=== PATIENT | female | born 1950 | race Caucasian/White ===

== ENCOUNTER 2019-07-15 13:09 | Inpatient (IN) | payer MEDICARE ==
[~2019-07-15] VITALS: Ht 160 cm; Wt 101.2 kg
[~2019-07-15 13:09] MED LIST: ACET1TAB PO; ACET500T33 PO; AMIT10TA PO; APIX5TAB PO; ASCO500T4 PO; ASPI325T8 PO; ATOR40TA PO; CALC667T4 PO; CHLO4TAB20 PO; CIPR500T94 PO; CRESTOR10 MG PO; DEXL60CA2 PO; DIAZ5TAB4 PO; DICL75TA PO; DICY10CA3 PO; DOXY100T PO; ESOM40CA25 PO; FLUC100T7 PO; FOLI0.8T3 PO; FURO-68 PO; GABA-585 PO; GABA300C18 PO; INSU100I13 SQ; INSU100I15 SQ; INSU100I49 SQ; LEVO500T59 PO; LEXAPRO5 MG PO; METO5TAB PO; MONT10TA49 PO; NITR0.4T22 SL; NYST15PO9 TP; OLME20TA17 PO; PANT40TA77 PO; PRED-220 PO; RANI150C PO; TRIA16.52 NS; [UNRECOGNIZED DRUG - CODE] OP
[2019-07-15 13:41] VITALS: BP 136/71
--- NOTE | 2019-07-15 13:56 | HP ---
ADMIT DATE: 07/15/2019 ADMISSION HISTORY AND PHYSICAL CHIEF COMPLAINT AND HISTORY OF PRESENT ILLNESS: This 68-year-old white female well known to me in followup in the office. The patient was seen on the day of admission with once again abdominal pain. She had been at [facility] where she was discharged on the of this month for pancreatitis of uncertain etiology. It has been a week or so in [place] getting out in the last several days with ongoing epigastric pain with initially elevated lipase, mildly delayed gastric emptying time and was actually doing fairly well at discharge on 5 mg of Reglan a.c. and at bedtime and Protonix as well as some dicyclomine. She was back to the point of eating and drinking very little, was writhing around in the chair during the exam, it was elected to readmit her for further evaluation by GI, including EGD, etc. PAST MEDICAL HISTORY: Remarkable for cardiomyopathy with ejection fraction of 20%, which was nonischemic; longstanding history of diabetes; end-stage renal disease, on dialysis; hypertension; morbid obesity; pulmonary embolism in the past; vitamin D deficiency; history of decubitus ulcers and sacral area; atrial fibrillation; status post amputation of the right third toe; history of cardiac arrest with PEA and resuscitation. Also, history of mild dementia. MEDICATIONS: Brought with the patient, listed on the computer and have been addressed. ALLERGIES: SHE IS ALLERGIC TO PENICILLIN, MORPHINE, DARVOCET, SULFA, DILAUDID. SOCIAL HISTORY: She is a nonsmoker, nondrinker, does not abuse drugs. Lives at home with her , has also had some dementia, may have a daughter who helps on a daily basis. FAMILY HISTORY: Noncontributory. REVIEW OF SYSTEMS: Remarkable for epigastric severe pain, not radiating to the back, not made worse with eating, drinking or anything that she knows of. Also, not made better with anything including bowel movements, etc. She has had no nausea or vomiting with this. PHYSICAL EXAMINATION: GENERAL: She is a well-developed, well-nourished white female, appears ill. VITAL SIGNS: Stable. She is afebrile. HEAD, EYES, EARS, NOSE AND THROAT: Unremarkable. NECK: Supple, without lymphadenopathy or thyromegaly. CHEST: Clear to auscultation and percussion. HEART: Regular rate and rhythm without S3, S4 or murmur. ABDOMEN: Reveals epigastric tenderness, although it is not quite to the severity. It was during the last time of admission. EXTREMITIES: Without cyanosis, clubbing, edema. NEUROLOGIC: She is intact. IMPRESSION: Abdominal pain, incapacitating with multiple other problems listed above. PLAN: The patient has been admitted. GI will be asked to see her once again. Full lab panel will be done and the patient will be monitored, managed and treated appropriately. HUGH CARTER MD DR: ANIBAL/anyi JOB#: [id number] / [id number]
--- NOTE | 2019-07-15 15:31 | NUR ---
admitted to room 432. states she went to Dr. Cardona and he sent her here. she is unsure of the reason. poor historian. states that her meds are uncharged from last admission 2-3 wks ago. last bm this today. saline lock started in left inner forearm #22 on 2nd attempt. av shunt in the right ac area.. complains of right leg pain
[2019-07-15 15:55] VITALS: BP 132/71
[2019-07-15] MEDS ORDERED: DEXTROSE 50% 25 GM / 50ML DISP.SYRIN. IV PRN (16:15)
[2019-07-15] MEDS ORDERED: NITROGLYCERIN SUBLINGUAL 0.4 MG BOTTLE OF 25. SL PRN (16:15)
[2019-07-15] MEDS ORDERED: DICYCLOMINE HCL 10 MG CAPSULE PO PRN (16:15)
[2019-07-15] MEDS: METOCLOPRAMIDE 5 MG TABLET. PO SCH ×2 (16:53→21:33)
[2019-07-15] MEDS: CALCIUM ACETATE 667 MG CAPSULE PO SCH (16:53)
[2019-07-15] MEDS: fentaNYL PF VIAL 100 MCG/2 ML VIAL IVP PRN ×2 (16:54→21:47)
[2019-07-15] MEDS: IV NORMAL SALINE 1000ML BAG 1,000 ML IV SCH (16:54)
[2019-07-15] MEDS: INSULIN LISPRO 300 UNITS/3 ML VIAL. SQ SCH ×2 (17:02→17:03)
[2019-07-15 17:54] LABS: HEMATOCRIT 30.4 % (36.0-47.0); HEMOGLOBIN 10.1 g/dL (12.0-15.5); WHITE BLOOD COUNT 4.2 x10^3/uL (4.0-11.0)
[2019-07-15 18:05] LABS: AMYLASE 21 U/L (25-115); LIPASE 130 U/L (73-393)
[2019-07-15 18:10] LABS: ALBUMIN 2.9 g/dL (3.4-5.0); ALBUMIN/GLOBULIN RATIO 0.7 (1.0-1.7); CREATININE 7.1 mg/dL (0.6-1.0); GFR 5.8; POTASSIUM 5.5 mmol/L (3.5-5.1); TOTAL BILIRUBIN 0.8 mg/dL (0.2-1.0); TOTAL PROTEIN 7.2 g/dL (6.4-8.2)
[2019-07-15 19:00] VITALS: BP 110/67
[2019-07-15] MEDS: APIXABAN 5 MG TABLET. PO SCH (21:32)
[2019-07-15] MEDS: GABAPENTIN 300 MG CAPSULE. PO SCH (21:33)
[2019-07-15] MEDS: NYSTATIN TOPICAL POWDER 15GM BOTTLE. TP SCH (22:41)
[2019-07-15 23:00] VITALS: BP 102/75
[2019-07-16 02:52] VITALS: BP 106/64
[2019-07-16] MEDS: fentaNYL PF VIAL 100 MCG/2 ML VIAL IVP PRN ×2 (03:21→16:04)
[2019-07-16] MEDS ORDERED: IV RINGERS,LACTATED 1000ML 1,000 ML IV SCH (07:12)
[2019-07-16] MEDS ORDERED: fentaNYL PF VIAL 100 MCG/2 ML VIAL IV PRN ×2 (07:15)
[2019-07-16] MEDS ORDERED: ONDANSETRON PF 4 MG/2 ML VIAL. IV PRN (07:15)
[2019-07-16] MEDS ORDERED: LIDOCAINE 1% PF 2 ML VIAL. ID PRN (07:15)
[2019-07-16] MEDS: METOCLOPRAMIDE 5 MG TABLET. PO SCH ×4 (07:30→21:16)
[2019-07-16] MEDS: PANTOPRAZOLE 40 MG TABLET.DR. PO SCH (07:30)
[2019-07-16] MEDS: CALCIUM ACETATE 667 MG CAPSULE PO SCH ×3 (07:51→15:58)
[2019-07-16 07:59] VITALS: BP 118/68
[2019-07-16] MEDS: INSULIN LISPRO 300 UNITS/3 ML VIAL. SQ SCH ×8 (08:00→16:52)
--- NOTE | 2019-07-16 08:11 | PDOC ---
GENERAL General: vss and afebrile sugars variable. less abdominal tenderness and complaints of same this am. I did check with pharmacy yesterday and dc meds from prior hospitalization were filled on dc. chest clear, heart regular, amylase and lipase are normal on admit. await egd and GI thoughts. VITAL SIGNS/I&O Vital Signs/I&O: Vital Signs Date Time Temp Pulse Resp B/P (MAP) Pulse Ox O2 Delivery O2 Flow Rate FiO2 07/16/19 07:59 98.0 101 18 118/68 (85) 95 Room Air 98.0 I & O 07/15/19 07/15/19 07/16/19 15:00 23:00 07:00 Intake Total 1410 ml Balance 1410 ml ALLERGIES Allergies: Allergies Coded Allergies Type Severity Reaction Last Updated Verified Penicillins Allergy Intermediate Rash 04/19/17 Yes clarithromycin Allergy Intermediate Rash 04/19/17 Yes levofloxacin Allergy Intermediate RASH TO TONGUE 04/19/17 Yes sulfamethoxazole Allergy Intermediate Rash 04/19/17 Yes trimethoprim Allergy Intermediate Rash 04/19/17 Yes vancomycin Allergy Intermediate Itching, NERVOUSNESS, FLUSHING 04/19/17 Yes hydromorphone Adverse Reaction Severe Shortness of Air 04/19/17 Yes Sulfa (Sulfonamide Antibiotics) Adverse Reaction Intermediate Anxiety, insomnia 04/19/17 Yes morphine Adverse Reaction Intermediate hallucinations 04/19/17 Yes MEDS Medications: Current Medications Medications (Trade) Dose Ordered Sig/Samara Route PRN Reason Start Time Stop Time Status Last Admin Dose Admin Apixaban (Eliquis) 5 mg BID PO 07/15/19 21:00 07/15/19 21:32 Gabapentin (Neurontin) 300 mg TID PO 07/15/19 21:00 07/15/19 21:33 Metoclopramide HCl (Reglan) 5 mg TIDACHC PO 07/15/19 16:30 07/15/19 21:33 Nystatin (Nystop) 15 anette BID TP 07/15/19 21:00 07/15/19 22:41 Calcium Acetate (Phoslo) 667 mg TIDWMEALS PO 07/15/19 17:00 07/15/19 16:53 Insulin Human Lispro (HumaLOG) 8 units TIDWMEALS SQ 07/15/19 17:00 07/15/19 17:03 Sodium Chloride 1,000 ml @ 50 mls/hr Q20H IV 07/15/19 16:15 07/15/19 16:54 Fentanyl Citrate (Fentanyl 2ml Vial) 25 mcg PRN Q2HR PRN IVP PAIN 07/15/19 16:15 07/16/19 03:21 Insulin Human Lispro (HumaLOG) 0-5 UNITS TIDWMEALS SQ 07/15/19 17:00 07/15/19 17:02 LAB Lab: Laboratory Tests Test 07/15/19 14:52 07/15/19 16:36 07/15/19 17:20 07/15/19 20:56 Glucose (Fingerstick) 247 mg/dL (70-99) H 241 mg/dL (70-99) H 118 mg/dL (70-99) H White Blood Count 4.2 x10^3/uL (4.0-11.0) Hemoglobin 10.1 g/dL (12.0-15.5) L Hematocrit 30.4 % (36.0-47.0) L Platelet Count 199 x10^3/uL (140-400) Sodium Level 133 mmol/L (136-145) L Potassium Level 5.5 mmol/L (3.5-5.1) H Chloride Level 95 mmol/L (98-107) L Carbon Dioxide Level 26 mmol/L (21-32) Anion Gap 12 (6-14) Blood Urea Nitrogen 65 mg/dL (7-20) H Creatinine 7.1 mg/dL (0.6-1.0) H Estimated GFR (Cockcroft-Gault) 5.8 BUN/Creatinine Ratio 9 (6-20) Glucose Level 236 mg/dL (70-99) H Calcium Level 9.0 mg/dL (8.5-10.1) Total Bilirubin 0.8 mg/dL (0.2-1.0) Aspartate Amino Transferase (AST) 27 U/L (15-37) Alanine Aminotransferase (ALT) 40 U/L (14-59) Alkaline Phosphatase 244 U/L (46-116) H Total Protein 7.2 g/dL (6.4-8.2) Albumin 2.9 g/dL (3.4-5.0) L Albumin/Globulin Ratio 0.7 (1.0-1.7) L Amylase Level 21 U/L (25-115) L Lipase 130 U/L (73-393) Test 07/16/19 07:53 Glucose (Fingerstick) 145 mg/dL (70-99) H Laboratory Tests 07/15/19 17:20 Laboratory Tests 07/15/19 17:20 HUGH CARTER MD Jul 16, 2019 08:11
[2019-07-16] MEDS: GABAPENTIN 300 MG CAPSULE. PO SCH ×3 (08:39→21:16)
[2019-07-16] MEDS: ATORVASTATIN CALCIUM 40 MG TABLET. PO SCH (08:39)
[2019-07-16] MEDS: APIXABAN 5 MG TABLET. PO SCH ×2 (08:39→21:16)
[2019-07-16] MEDS: FOLIC/VIT B COMP W-C (RENAL) TABLET. PO SCH (08:40)
[2019-07-16] MEDS: MONTELUKAST SODIUM 10 MG TABLET. PO SCH (08:40)
[2019-07-16] MEDS: NYSTATIN TOPICAL POWDER 15GM BOTTLE. TP SCH ×2 (08:55→21:17)
--- NOTE | 2019-07-16 09:34 | PDOC2 ---
CONSULT Date of Consult Date of Consult DATE: 07/16/19 TIME: 09:26 Source Source: Chart review, Patient History of Present Illness Reason for Visit: Pt is a 68-year-old female readmitted with c/0 abdominal pain. She had been at [facility] where she was discharged on the 9 of this month for pancreatitis of uncertain etiology. Hospitalized at [facility] and [facility] earlier this week C/O ongoing epigastric pain with elevated lipase, mildly delayed gastric emptying time She has OP Dialyses at [facility] under the care of Dr. Curtis on TTS Past Medical History Past Medical History Has cardiomyopathy with ejection fraction of 20%, which was nonischemic; longstanding history of diabetes; end-stage renal disease, on dialysis; hypertension; morbid obesity; pulmonary embolism in the past; vitamin D deficiency; history of decubitus ulcers and sacral area; atrial fibrillation; status post amputation of the right third toe; history of cardiac arrest with PEA and resuscitation. Also, history of mild dementia. Cardiovascular: CHF, HTN GI: Constipation Heme/Onc: Anemia NOS Renal/: Chronic renal failure Endocrine: Hyperparathyroidism Family History Family History: Hypertension Social History ALCOHOL: none Drugs: None Lives: with Family Current Medications Current Medications Current Medications Apixaban (Eliquis) 5 mg BID PO Last administered on 07/15/19at 21:32; Start 07/15/19 at 21:00 Atorvastatin Calcium (Lipitor) 40 mg DAILY PO ; Start 07/16/19 at 09:00 Dicyclomine HCl (Bentyl) 10 mg PRN TID PRN PO abd pain; Start 07/15/19 at 16:15 Vitamin B Complex/ Vitamin C (Swathi-Karmen) 1 tab DAILY PO ; Start 07/16/19 at 09:00 Gabapentin (Neurontin) 300 mg TID PO Last administered on 07/15/19at 21:33; Start 07/15/19 at 21:00 Metoclopramide HCl (Reglan) 5 mg TIDACHC PO Last administered on 07/15/19at 21:33; Start 07/15/19 at 16:30 Montelukast Sodium (Singulair) 10 mg DAILY PO ; Start 07/16/19 at 09:00 Nitroglycerin (Nitrostat) 0.4 mg PRN Q5MIN PRN SL CHEST PAIN; Start 07/15/19 at 16:15 Nystatin (Nystop) 15 anette BID TP Last administered on 07/15/19at 22:41; Start 07/15/19 at 21:00 Pantoprazole Sodium (Protonix) 40 mg DAILYAC PO ; Start 07/16/19 at 07:30 Calcium Acetate (Phoslo) 667 mg TIDWMEALS PO Last administered on 07/15/19at 16:53; Start 07/15/19 at 17:00 Insulin Human Lispro (HumaLOG) 8 units TIDWMEALS SQ Last administered on 07/15/19at 17:03; Start 07/15/19 at 17:00 Sodium Chloride 1,000 ml @ 50 mls/hr Q20H IV Last administered on 07/15/19at 16:54; Start 07/15/19 at 16:15 Fentanyl Citrate (Fentanyl 2ml Vial) 25 mcg PRN Q2HR PRN IVP PAIN Last administered on 07/16/19at 03:21; Start 07/15/19 at 16:15 Insulin Human Lispro (HumaLOG) 0-5 UNITS TIDWMEALS SQ Last administered on 07/15/19at 17:02; Start 07/15/19 at 17:00 Dextrose (Dextrose 50%-Water Syringe) 12.5 gm PRN Q15MIN PRN IV SEE COMMENTS; Start 07/15/19 at 16:15 Ondansetron HCl (Zofran) 4 mg PRN Q6HRS PRN IV NAUSEA/VOMITING; Start 07/16/19 at 07:15; Stop 07/17/19 at 07:14 Fentanyl Citrate (Fentanyl 2ml Vial) 25 mcg PRN Q5MIN PRN IV MILD PAIN 1-3; Start 07/16/19 at 07:15; Stop 07/17/19 at 07:14 Fentanyl Citrate (Fentanyl 2ml Vial) 50 mcg PRN Q5MIN PRN IV MODERATE TO SEVERE PAIN; Start 07/16/19 at 07:15; Stop 07/17/19 at 07:14 Ringer's Solution 1,000 ml @ 30 mls/hr Q24H IV ; Start 07/16/19 at 07:12; Stop 07/16/19 at 19:11 Lidocaine HCl (Xylocaine-Mpf 1% 2ml Vial) 2 ml PRN 1X PRN ID PRIOR TO IV START; Start 07/16/19 at 07:15; Stop 07/17/19 at 07:14 Active Scripts Active Metoclopramide Hcl 5 Mg Tablet 5 Mg PO TIDACHC 30 Days Pantoprazole Sodium (Pantoprazole Sodium) 40 Mg Tablet.dr 40 Mg PO DAILYAC 30 Days Dicyclomine Hcl 10 Mg Capsule 10 Mg PO PRN TID PRN 30 Days Reported Nystatin 15 Gm Powder 15 Gm TP BID Nephro-Karmen Tablet (Folic Acid/Vitamin B Comp W-C) 0.8 Mg Tablet 1 Tab PO DAILY Calcium Acetate 667 Mg Tablet 667 Mg PO TIDWMEALS Lipitor (Atorvastatin Calcium) 40 Mg Tablet 40 Mg PO DAILY Eliquis (Apixaban) 5 Mg Tablet 5 Mg PO BID Novolin R Flexpen (Insulin Regular, Human) 100 Unit/1 Ml Insuln.pen 8 Unit SQ TIDWMEALS NITROGLYCERIN SubLingual (Nitroglycerin) 0.4 Mg Tab.subl 0.4 Mg SL PRN Q5MIN PRN Montelukast Sodium Tablet (Montelukast Sodium) 10 Mg Tablet 10 Mg PO DAILY Gabapentin 300 Mg Capsule 300 Mg PO TID Allergies Allergies: Coded Allergies: Penicillins (Verified Allergy, Intermediate, Rash, 04/19/17) clarithromycin (Verified Allergy, Intermediate, Rash, 04/19/17) levofloxacin (Verified Allergy, Intermediate, RASH TO TONGUE, 04/19/17) sulfamethoxazole (Verified Allergy, Intermediate, Rash, 04/19/17) trimethoprim (Verified Allergy, Intermediate, Rash, 04/19/17) vancomycin (Verified Allergy, Intermediate, Itching, NERVOUSNESS, FLUSHING, 04/19/17) hydromorphone (Verified Adverse Reaction, Severe, Shortness of Air, 04/19/17) Patient had respiratory code post administration Sulfa (Sulfonamide Antibiotics) (Verified Adverse Reaction, Intermediate, Anxiety, insomnia, 04/19/17) morphine (Verified Adverse Reaction, Intermediate, hallucinations, 04/19/17) ROS Review of System Per HPI Physical Exam Physical Exam GENERAL: NAD HEEN: Unremarkable. NECK: Supple, CHEST: Clear to auscultation HEART: Regular rate and rhythm ABDOMEN: epigastric tenderness EXTREMITIES: Without cyanosis, clubbing, edema. NEUROLOGIC:grossly normal - No easley DERM- No Rash Vital Signs Vital Signs Date Time Temp Pulse Resp B/P (MAP) Pulse Ox O2 Delivery O2 Flow Rate FiO2 07/16/19 08:30 Room Air 07/16/19 07:59 98.0 101 18 118/68 (85) 95 98.0 Assessment & Plan ESRD On HD at [facility] Under the care of Dr. Curtis Access- Rt arm Transposed BC AVF , Dialyzed yesterday No indication for HD today HyperKalemia- Mild , Monitor, Low K diet Epigastric pain - recurrent Mildly delayed gastric emptying , recently started on Reglan per primary EGD this am per GI H/o pancreatitis - cause unclear; s/p anayeli, recent CT unrevealing, CA19-9 and IgG4 WNL, previously suggested outpt MRCP, ?recent workup at [facility] H/o pancreatitis - cause unclear; s/p anayeli, HypoNatremia- normal after correcting for Glucose DM- , Pcp Labs Labs Laboratory Tests Test 07/15/19 14:52 07/15/19 16:36 07/15/19 17:20 07/15/19 20:56 Glucose (Fingerstick) 247 mg/dL (70-99) 241 mg/dL (70-99) 118 mg/dL (70-99) White Blood Count 4.2 x10^3/uL (4.0-11.0) Hemoglobin 10.1 g/dL (12.0-15.5) Hematocrit 30.4 % (36.0-47.0) Platelet Count 199 x10^3/uL (140-400) Sodium Level 133 mmol/L (136-145) Potassium Level 5.5 mmol/L (3.5-5.1) Chloride Level 95 mmol/L (98-107) Carbon Dioxide Level 26 mmol/L (21-32) Anion Gap 12 (6-14) Blood Urea Nitrogen 65 mg/dL (7-20) Creatinine 7.1 mg/dL (0.6-1.0) Estimated GFR (Cockcroft-Gault) 5.8 BUN/Creatinine Ratio 9 (6-20) Glucose Level 236 mg/dL (70-99) Calcium Level 9.0 mg/dL (8.5-10.1) Total Bilirubin 0.8 mg/dL (0.2-1.0) Aspartate Amino Transf (AST/SGOT) 27 U/L (15-37) Alanine Aminotransferase (ALT/SGPT) 40 U/L (14-59) Alkaline Phosphatase 244 U/L (46-116) Total Protein 7.2 g/dL (6.4-8.2) Albumin 2.9 g/dL (3.4-5.0) Albumin/Globulin Ratio 0.7 (1.0-1.7) Amylase Level 21 U/L (25-115) Lipase 130 U/L (73-393) Test 07/16/19 07:53 Glucose (Fingerstick) 145 mg/dL (70-99) Laboratory Tests Test 07/15/19 14:52 07/15/19 16:36 07/15/19 17:20 07/15/19 20:56 Glucose (Fingerstick) 247 mg/dL (70-99) 241 mg/dL (70-99) 118 mg/dL (70-99) White Blood Count 4.2 x10^3/uL (4.0-11.0) Hemoglobin 10.1 g/dL (12.0-15.5) Hematocrit 30.4 % (36.0-47.0) Platelet Count 199 x10^3/uL (140-400) Sodium Level 133 mmol/L (136-145) Potassium Level 5.5 mmol/L (3.5-5.1) Chloride Level 95 mmol/L (98-107) Carbon Dioxide Level 26 mmol/L (21-32) Anion Gap 12 (6-14) Blood Urea Nitrogen 65 mg/dL (7-20) Creatinine 7.1 mg/dL (0.6-1.0) Estimated GFR (Cockcroft-Gault) 5.8 BUN/Creatinine Ratio 9 (6-20) Glucose Level 236 mg/dL (70-99) Calcium Level 9.0 mg/dL (8.5-10.1) Total Bilirubin 0.8 mg/dL (0.2-1.0) Aspartate Amino Transf (AST/SGOT) 27 U/L (15-37) Alanine Aminotransferase (ALT/SGPT) 40 U/L (14-59) Alkaline Phosphatase 244 U/L (46-116) Total Protein 7.2 g/dL (6.4-8.2) Albumin 2.9 g/dL (3.4-5.0) Albumin/Globulin Ratio 0.7 (1.0-1.7) Amylase Level 21 U/L (25-115) Lipase 130 U/L (73-393) Test 07/16/19 07:53 Glucose (Fingerstick) 145 mg/dL (70-99) Review All relevant outside records, renal labs, imaging studies, telemetry/EKG's were reviewed. MELVIN NEWBERRY MD Jul 16, 2019 09:34
--- NOTE | 2019-07-16 09:44 | PDOC ---
Subjective: Subjective: Please see GI consults from 07/05/19. Directly admitted by PCP again yesterday for recurrent abd pain. She says began again yesterday w/o precipitating events. Epigastric, aching. Doesn't know what brought it on or what makes it worse or better. Indicates compliance w/ PPI and prokinetic. Denies n/v, diarrhea, constipation, and bleeding. Objective: Objective: Requested records x 2 last admission - not received. She says she does not remember this recent admission/workup. Vital Signs: Vital Signs Date Time Temp Pulse Resp B/P (MAP) Pulse Ox O2 Delivery O2 Flow Rate FiO2 07/16/19 08:30 Room Air 07/16/19 07:59 98.0 101 18 118/68 (85) 95 98.0 Labs: Laboratory Tests Test 07/15/19 14:52 07/15/19 16:36 07/15/19 20:56 07/16/19 07:53 Glucose (Fingerstick) 247 mg/dL (70-99) 241 mg/dL (70-99) 118 mg/dL (70-99) 145 mg/dL (70-99) Imaging: CT A/P 07/04 IMPRESSION: No acute process identified within the abdomen or pelvis. GES 07/11 Impression: Slight delay of gastric emptying at 2 hours and a slightly prolonged T1/2. Gastric emptying is overall otherwise within normal limits. PE: GEN: NAD, was asleep - bag of sun chips on bedside table LUNGS: diminished anteriorly HEART: borderline tachycardic ABD: epigastric discomfort, large, soft, quiet BS NEURO/PSYCH: quite forgetful A/P: Epigastric pain - recurrent Occasional heartburn - resumed PPI last admission Mildly delayed gastric emptying - recently started on Reglan per primary H/o pancreatitis - cause unclear; s/p anayeli, recent CT unrevealing, CA19-9 and IgG4 WNL, previously suggested outpt MRCP, ?recent workup at [facility], ESRD on HD, DM -- Challenging history. Plans for EGD this morning w/ Dr. Sue - she is agreeable. Hemodynamically unstable?: No Is patient in severe pain?: No Is NPO status required?: Yes (for EGD) ASHUTOSH SHAIKH Jul 16, 2019 09:44
[2019-07-16] MEDS ORDERED: IV NORMAL SALINE 1000ML BAG 1,000 ML IV SCH (10:45)
[2019-07-16] MEDS: ANTI-COAG MONITOR BY PHARMACY. MC PRN (10:50)
[2019-07-16] MEDS ORDERED: LIDOCAINE 2% PF 5 ML VIAL. ONE (10:54)
[2019-07-16] MEDS ORDERED: PROPOFOL 40 ML IV ONE (10:54)
[2019-07-16] MEDS ORDERED: ePHEDrine PF IN SALINE 50 MG/10 ML SYRINGE. IV ONE (10:54)
--- NOTE | 2019-07-16 11:35 | PDOC4 ---
Operative Note Operative Note EGD Meds propofol per anesthesia Pre-op dx abd pain, n/v Post-op dx non-erosive gastritis Plan resume diet sb series if pain recurs to further assess ABEL BERGERON MD Jul 16, 2019 11:35
--- NOTE | 2019-07-16 13:52 | NUR ---
SS following for discharge planning. SS reviewed pt chart and discussed with pt RN. Pt is from home with spouse and is currently on room air. Pt has outpatient dialysis at [facility], ; fax [phone], Friday, , and Friday. [facility] requiring COVID19 testing. Pt's RN notified. Pt had EGD today, 07/16/2019. SS will continue to follow for discharge planning.
[2019-07-16] MEDS: IV NORMAL SALINE 1000ML BAG 1,000 ML IV SCH (14:00)
[2019-07-16 15:00] VITALS: BP 111/68
--- NOTE | 2019-07-16 18:31 | NUR ---
Pt had previous skin tear noted to R elbow that reopened. Pt stated she "didn't know how it reopened." This RN applied gauze and medipore tape.
[2019-07-16 19:44] VITALS: BP 111/73
[2019-07-16 23:12] VITALS: BP 115/67
[2019-07-17] MEDS: fentaNYL PF VIAL 100 MCG/2 ML VIAL IVP PRN ×4 (02:48→17:48)
[2019-07-17 03:11] VITALS: BP 102/42
[2019-07-17 06:45] LABS: CALCIUM 8.1 mg/dL (8.5-10.1); CREATININE 7.7 mg/dL (0.6-1.0); GFR 5.2; POTASSIUM 5.5 mmol/L (3.5-5.1)
[2019-07-17 07:00] VITALS: BP 96/52
[2019-07-17] MEDS: METOCLOPRAMIDE 5 MG TABLET. PO SCH ×4 (07:30→21:19)
[2019-07-17] MEDS: INSULIN LISPRO 300 UNITS/3 ML VIAL. SQ SCH ×6 (08:00→17:55)
[2019-07-17] MEDS: CALCIUM ACETATE 667 MG CAPSULE PO SCH ×3 (08:00→15:15)
[2019-07-17] MEDS ORDERED: IV NORMAL SALINE 1000ML BAG 1,000 ML IV PRN (08:26)
[2019-07-17] MEDS ORDERED: DIALYSIS PATIENT. MC PRN (08:30)
[2019-07-17] MEDS ORDERED: MIDODRINE 5 MG TABLET PO PRN (08:30)
[2019-07-17] MEDS ORDERED: ALBUMIN HUMAN 25% 200 ML IV PRN (08:30)
[2019-07-17] MEDS: GABAPENTIN 300 MG CAPSULE. PO SCH ×3 (09:00→21:18)
[2019-07-17] MEDS: APIXABAN 5 MG TABLET. PO SCH ×2 (09:00→21:19)
--- NOTE | 2019-07-17 09:07 | PDOC ---
GENERAL General: vss and afebrile awake and alert and just finished 100% of breakfast. no significant complaint of abdominal pain this am. non erosive gastritis on egd yesterday. sugars fair. minimal epigastric tenderness, chest clear, heart regular. continue present with dc am if continues as is this am. concerned that meds not being taken as prescribed at home with dementia of patient and . have discussed with daughter multiple times strategies to address and will again. VITAL SIGNS/I&O Vital Signs/I&O: Vital Signs Date Time Temp Pulse Resp B/P (MAP) Pulse Ox O2 Delivery O2 Flow Rate FiO2 07/17/19 07:00 97.6 112 16 96/52 (67) 98 Room Air 97.6 07/16/19 11:31 4 I & O 07/16/19 07/16/19 07/17/19 15:00 23:00 07:00 Intake Total 1000 ml 340 ml 1260 ml Output Total 1 ml Balance 1000 ml 339 ml 1260 ml ALLERGIES Allergies: Allergies Coded Allergies Type Severity Reaction Last Updated Verified Penicillins Allergy Intermediate Rash 04/19/17 Yes clarithromycin Allergy Intermediate Rash 04/19/17 Yes levofloxacin Allergy Intermediate RASH TO TONGUE 04/19/17 Yes sulfamethoxazole Allergy Intermediate Rash 04/19/17 Yes trimethoprim Allergy Intermediate Rash 04/19/17 Yes vancomycin Allergy Intermediate Itching, NERVOUSNESS, FLUSHING 04/19/17 Yes hydromorphone Adverse Reaction Severe Shortness of Air 04/19/17 Yes Sulfa (Sulfonamide Antibiotics) Adverse Reaction Intermediate Anxiety, insomnia 04/19/17 Yes morphine Adverse Reaction Intermediate hallucinations 04/19/17 Yes MEDS Medications: Current Medications Medications (Trade) Dose Ordered Sig/Samara Route PRN Reason Start Time Stop Time Status Last Admin Dose Admin Info (Anti-Coagulation Monitoring By Pharmacy) 1 each PRN DAILY PRN MC SEE COMMENTS 07/16/19 10:30 07/16/19 10:50 LAB Lab: Laboratory Tests Test 07/16/19 12:57 07/16/19 16:23 07/16/19 20:51 07/17/19 01:30 Glucose (Fingerstick) 157 mg/dL (70-99) H 245 mg/dL (70-99) H 113 mg/dL (70-99) H Sodium Level 138 mmol/L (136-145) Potassium Level 5.5 mmol/L (3.5-5.1) H Chloride Level 99 mmol/L (98-107) Carbon Dioxide Level 25 mmol/L (21-32) Anion Gap 14 (6-14) Blood Urea Nitrogen 70 mg/dL (7-20) H Creatinine 7.7 mg/dL (0.6-1.0) H Estimated GFR (Cockcroft-Gault) 5.2 Glucose Level 62 mg/dL (70-99) L Calcium Level 8.1 mg/dL (8.5-10.1) L Test 07/17/19 07:32 Glucose (Fingerstick) 86 mg/dL (70-99) Laboratory Tests 07/17/19 01:30 Hemodynamically unstable?: No Is patient in severe pain?: No Is NPO status required?: Yes (for EGD) HUGH CARTER MD Jul 17, 2019 09:07
[2019-07-17] MEDS ORDERED: LIDOCAINE 1% PF 2 ML VIAL. ONE ×2 (09:43→10:00)
--- NOTE | 2019-07-17 09:45 | NUR ---
Pt transported to dialysis by bed. Pt states that her 2 year olds preschool teacher (s) that her brought in never were brought up to her and are missing. Gianna from dialysis checked down at the front entrance. No employee present at the time. Will check with security.
--- NOTE | 2019-07-17 12:53 | PDOC ---
Dialysis Progress Note Dialysis Note Dialysis Note Seen on Hemodialysis, tolerating treatment Okay so far Vitals on Hemodialysis: 120/71 108 afeb General Appearance: Awake: Alert Oriented x 2-3 Neck: No JVD or JVP Chest: CTA Floyd Heart: S1 S2 Abdomen - Soft NTND Extremities - No Edema ESRD: Dialysis as below F 180 NR 4.0 Hrs 2 K 2.5 Ca 140 Na 35 HC03 Qb 350 + Qd 500+ Heparin 0 Units Uf 2-3 Kgs or to dry weight as tolerated May give 25-50 gms of 25% Albumin if needed to maintain Hemodynamic stability Treatment plan reviewed and discussed with drum reel cutter Vitals Vital Signs Vital Signs Date Time Temp Pulse Resp B/P (MAP) Pulse Ox O2 Delivery O2 Flow Rate FiO2 07/17/19 11:07 20 98 Room Air 07/17/19 07:00 97.6 112 96/52 (67) 97.6 07/16/19 11:31 4 Labs Last Labs Laboratory Tests Test 07/15/19 14:52 07/15/19 16:36 07/15/19 17:20 07/15/19 20:56 Glucose (Fingerstick) 247 mg/dL (70-99) 241 mg/dL (70-99) 118 mg/dL (70-99) White Blood Count 4.2 x10^3/uL (4.0-11.0) Hemoglobin 10.1 g/dL (12.0-15.5) Hematocrit 30.4 % (36.0-47.0) Platelet Count 199 x10^3/uL (140-400) Sodium Level 133 mmol/L (136-145) Potassium Level 5.5 mmol/L (3.5-5.1) Chloride Level 95 mmol/L (98-107) Carbon Dioxide Level 26 mmol/L (21-32) Anion Gap 12 (6-14) Blood Urea Nitrogen 65 mg/dL (7-20) Creatinine 7.1 mg/dL (0.6-1.0) Estimated GFR (Cockcroft-Gault) 5.8 BUN/Creatinine Ratio 9 (6-20) Glucose Level 236 mg/dL (70-99) Calcium Level 9.0 mg/dL (8.5-10.1) Total Bilirubin 0.8 mg/dL (0.2-1.0) Aspartate Amino Transf (AST/SGOT) 27 U/L (15-37) Alanine Aminotransferase (ALT/SGPT) 40 U/L (14-59) Alkaline Phosphatase 244 U/L (46-116) Total Protein 7.2 g/dL (6.4-8.2) Albumin 2.9 g/dL (3.4-5.0) Albumin/Globulin Ratio 0.7 (1.0-1.7) Amylase Level 21 U/L (25-115) Lipase 130 U/L (73-393) Test 07/16/19 07:53 07/16/19 12:57 07/16/19 16:23 07/16/19 20:51 Glucose (Fingerstick) 145 mg/dL (70-99) 157 mg/dL (70-99) 245 mg/dL (70-99) 113 mg/dL (70-99) Test 07/17/19 01:30 07/17/19 07:32 Sodium Level 138 mmol/L (136-145) Potassium Level 5.5 mmol/L (3.5-5.1) Chloride Level 99 mmol/L (98-107) Carbon Dioxide Level 25 mmol/L (21-32) Anion Gap 14 (6-14) Blood Urea Nitrogen 70 mg/dL (7-20) Creatinine 7.7 mg/dL (0.6-1.0) Estimated GFR (Cockcroft-Gault) 5.2 Glucose Level 62 mg/dL (70-99) Calcium Level 8.1 mg/dL (8.5-10.1) Glucose (Fingerstick) 86 mg/dL (70-99) Laboratory Tests Test 07/16/19 12:57 07/16/19 16:23 07/16/19 20:51 07/17/19 01:30 Glucose (Fingerstick) 157 mg/dL (70-99) 245 mg/dL (70-99) 113 mg/dL (70-99) Sodium Level 138 mmol/L (136-145) Potassium Level 5.5 mmol/L (3.5-5.1) Chloride Level 99 mmol/L (98-107) Carbon Dioxide Level 25 mmol/L (21-32) Anion Gap 14 (6-14) Blood Urea Nitrogen 70 mg/dL (7-20) Creatinine 7.7 mg/dL (0.6-1.0) Estimated GFR (Cockcroft-Gault) 5.2 Glucose Level 62 mg/dL (70-99) Calcium Level 8.1 mg/dL (8.5-10.1) Test 07/17/19 07:32 Glucose (Fingerstick) 86 mg/dL (70-99) JULIANNE ONEIL MD Jul 17, 2019 12:53
[2019-07-17] MEDS: ANTI-COAG MONITOR BY PHARMACY. MC PRN (13:56)
[2019-07-17 15:00] VITALS: BP 126/72
[2019-07-17] MEDS: MONTELUKAST SODIUM 10 MG TABLET. PO SCH (15:14)
[2019-07-17] MEDS: ATORVASTATIN CALCIUM 40 MG TABLET. PO SCH (15:15)
[2019-07-17] MEDS: PANTOPRAZOLE 40 MG TABLET.DR. PO SCH (15:15)
[2019-07-17] MEDS: FOLIC/VIT B COMP W-C (RENAL) TABLET. PO SCH (15:15)
[2019-07-17] MEDS: IV NORMAL SALINE 1000ML BAG 1,000 ML IV SCH (15:33)
[2019-07-17] MEDS: NYSTATIN TOPICAL POWDER 15GM BOTTLE. TP SCH ×2 (15:40→21:19)
[2019-07-17 19:34] VITALS: BP 119/70
[2019-07-17 23:01] VITALS: BP 111/69
[2019-07-18 03:19] VITALS: BP 121/61
[2019-07-18] MEDS: IV NORMAL SALINE 1000ML BAG 1,000 ML IV SCH (04:15)
[2019-07-18] MEDS: fentaNYL PF VIAL 100 MCG/2 ML VIAL IVP PRN ×6 (05:35→21:54)
[2019-07-18 07:38] VITALS: BP 133/76
[2019-07-18] MEDS: MONTELUKAST SODIUM 10 MG TABLET. PO SCH (08:11)
[2019-07-18] MEDS: APIXABAN 5 MG TABLET. PO SCH ×2 (08:11→21:53)
[2019-07-18] MEDS: GABAPENTIN 300 MG CAPSULE. PO SCH ×3 (08:11→21:53)
[2019-07-18] MEDS: FOLIC/VIT B COMP W-C (RENAL) TABLET. PO SCH (08:11)
[2019-07-18] MEDS: ATORVASTATIN CALCIUM 40 MG TABLET. PO SCH (08:12)
[2019-07-18] MEDS: NYSTATIN TOPICAL POWDER 15GM BOTTLE. TP SCH ×2 (08:12→21:54)
[2019-07-18] MEDS: CALCIUM ACETATE 667 MG CAPSULE PO SCH ×3 (08:12→16:54)
[2019-07-18] MEDS: PANTOPRAZOLE 40 MG TABLET.DR. PO SCH (08:12)
[2019-07-18] MEDS: METOCLOPRAMIDE 5 MG TABLET. PO SCH ×4 (08:12→21:53)
[2019-07-18] MEDS: INSULIN LISPRO 300 UNITS/3 ML VIAL. SQ SCH ×6 (08:20→16:58)
[2019-07-18 11:09] VITALS: BP 116/76
--- NOTE | 2019-07-18 12:26 | PDOC ---
GENERAL General: vss and afebrile. awake and alert and stomach remains improved. right foot/ankle pain worse and making unable to ambulate. same started with fall prior to admit. exam stable. will get plain films right foot/ankle and ortho opinion. otherwise same. sugars variable. VITAL SIGNS/I&O Vital Signs/I&O: Vital Signs Date Time Temp Pulse Resp B/P (MAP) Pulse Ox O2 Delivery O2 Flow Rate FiO2 07/18/19 11:46 Room Air 07/18/19 11:09 97.4 96 16 116/76 (89) 97 97.4 07/17/19 11:37 4.0 I & O 07/17/19 07/17/19 07/18/19 14:59 22:59 06:59 Intake Total 400 ml 0 ml 0 ml Balance 400 ml 0 ml 0 ml ALLERGIES Allergies: Allergies Coded Allergies Type Severity Reaction Last Updated Verified Penicillins Allergy Intermediate Rash 04/19/17 Yes clarithromycin Allergy Intermediate Rash 04/19/17 Yes levofloxacin Allergy Intermediate RASH TO TONGUE 04/19/17 Yes sulfamethoxazole Allergy Intermediate Rash 04/19/17 Yes trimethoprim Allergy Intermediate Rash 04/19/17 Yes vancomycin Allergy Intermediate Itching, NERVOUSNESS, FLUSHING 04/19/17 Yes hydromorphone Adverse Reaction Severe Shortness of Air 04/19/17 Yes Sulfa (Sulfonamide Antibiotics) Adverse Reaction Intermediate Anxiety, i nsomnia 04/19/17 Yes morphine Adverse Reaction Intermediate hallucinations 04/19/17 Yes LAB Lab: Laboratory Tests Test 07/17/19 16:44 07/17/19 20:53 07/18/19 07:45 07/18/19 10:41 Glucose (Fingerstick) 168 mg/dL (70-99) H 225 mg/dL (70-99) H 214 mg/dL (70-99) H 287 mg/dL (70-99) H Hemodynamically unstable?: No Is patient in severe pain?: No Is NPO status required?: Yes (for EGD) HUGH CARTER MD Jul 18, 2019 12:26
--- NOTE | 2019-07-18 14:18 | RAD ---
Three-view right foot and three-view right ankle HISTORY: Pain status post fall Three-view right ankle: AP lateral oblique views There is a nondisplaced fracture of the distal fibula at and above the level plafond and with overlying soft tissue swelling. The remaining visualized osseous structures appear grossly intact. The tibiotalar relationship is normal. IMPRESSION: Acute traumatic nondisplaced fracture of the fibula at and above the level of the plafond. End impression Three-view right foot: AP lateral oblique views There is been prior amputation through the distal metatarsals. The remaining visualized osseous structures appear grossly intact. IMPRESSION: Prior transmetatarsal amputation. No acute findings. See 3 views right ankle. Electronically signed by: Primo Larson III, MD (07/18/2019 2:15 PM) [id number]
[2019-07-18 15:28] VITALS: BP 131/73
[2019-07-18 19:10] VITALS: BP 123/69
[2019-07-18 23:00] VITALS: BP 123/87
[2019-07-19] MEDS: IV NORMAL SALINE 1000ML BAG 1,000 ML IV SCH (00:15)
[2019-07-19 03:15] VITALS: BP 122/81
[2019-07-19] MEDS: fentaNYL PF VIAL 100 MCG/2 ML VIAL IVP PRN ×2 (06:29→09:55)
[2019-07-19 07:00] VITALS: BP 135/77
--- NOTE | 2019-07-19 07:56 | PDOC ---
GENERAL General: vss and afebrile. sugars variable. chest clear, heart regular, abdomen benign. right fibular fracture on x-ray and awaiting ortho opinion. will need to mobilize prior to dc to home. abdominal pain remains better. VITAL SIGNS/I&O Vital Signs/I&O: Vital Signs Date Time Temp Pulse Resp B/P (MAP) Pulse Ox O2 Delivery O2 Flow Rate FiO2 07/19/19 03:15 98.4 66 18 122/81 (95) 98 Room Air 98.4 I & O 07/18/19 07/18/19 07/19/19 15:00 23:00 07:00 Intake Total 1000 ml 320 ml Balance 1000 ml 320 ml ALLERGIES Allergies: Allergies Coded Allergies Type Severity Reaction Last Updated Verified Penicillins Allergy Intermediate Rash 04/19/17 Yes clarithromycin Allergy Intermediate Rash 04/19/17 Yes levofloxacin Allergy Intermediate RASH TO TONGUE 04/19/17 Yes sulfamethoxazole Allergy Intermediate Rash 04/19/17 Yes trimethoprim Allergy Intermediate Rash 04/19/17 Yes vancomycin Allergy Intermediate Itching, NERVOUSNESS, FLUSHING 04/19/17 Yes hydromorphone Adverse Reaction Severe Shortness of Air 04/19/17 Yes Sulfa (Sulfonamide Antibiotics) Adverse Reaction Intermediate Anxiety, insomnia 04/19/17 Yes morphine Adverse Reaction Intermediate hallucinations 04/19/17 Yes LAB Lab: Laboratory Tests Test 07/18/19 10:41 07/18/19 16:40 07/18/19 20:35 07/19/19 07:44 Glucose (Fingerstick) 287 mg/dL (70-99) H 166 mg/dL (70-99) H 148 mg/dL (70-99) H 286 mg/dL (70-99) H Hemodynamically unstable?: No Is patient in severe pain?: No Is NPO status required?: Yes (for EGD) HUGH CARTER MD Jul 19, 2019 07:56
[2019-07-19] MEDS: FOLIC/VIT B COMP W-C (RENAL) TABLET. PO SCH (08:14)
[2019-07-19] MEDS: ATORVASTATIN CALCIUM 40 MG TABLET. PO SCH (08:14)
[2019-07-19] MEDS: METOCLOPRAMIDE 5 MG TABLET. PO SCH ×4 (08:14→21:33)
[2019-07-19] MEDS: CALCIUM ACETATE 667 MG CAPSULE PO SCH ×3 (08:14→16:46)
[2019-07-19] MEDS: MONTELUKAST SODIUM 10 MG TABLET. PO SCH (08:14)
[2019-07-19] MEDS: GABAPENTIN 300 MG CAPSULE. PO SCH ×3 (08:14→21:33)
[2019-07-19] MEDS: PANTOPRAZOLE 40 MG TABLET.DR. PO SCH (08:14)
[2019-07-19] MEDS: APIXABAN 5 MG TABLET. PO SCH ×2 (08:15→21:33)
[2019-07-19] MEDS: NYSTATIN TOPICAL POWDER 15GM BOTTLE. TP SCH ×2 (08:15→21:37)
[2019-07-19] MEDS: INSULIN LISPRO 300 UNITS/3 ML VIAL. SQ SCH ×6 (08:18→16:54)
--- NOTE | 2019-07-19 08:51 | NUR ---
HEIDE following. Discussed with RN, awaiting ortho consult. Pt needing COVID-19 test for return to outpatient dialysis. RN notified. HEIDE will continue to follow. Addendum: 07/19/19 at 1629 by VALENTINO JAEGER HEIDE contacted pt's [facility] dialysis clinic (ph: [phone], fax: [phone]) to confirm if pt must have a COVID test. [facility] advised no pt does not need this test, HEIDE advised another [facility] clinic sent an e-mail to [facility] to advise they need a COVID test, the person who answered at [facility] put HEIDE on hold and spoke with the quality assurance supervisor body who advised pt does not need the COVID test. HEIDE notified the RN. Mindi TEJADA advised HEIDE, on Friday [facility] advised they do need it. HEIDE contacted [facility] back, quality assurance supervisor body had just left, however the worker advised they definitely do NOT require the COVID test. RN notified. Pt will need home health discharge order for resumption of care.
--- NOTE | 2019-07-19 09:10 | PDOC ---
Subjective: Subjective: No abd pain, tolerating diet. "I dunno, I guess I broke my foot." Objective: Objective: No GI concerns per nurse, says must be tested for COVID-19 for HD. 2 stools charted. Vital Signs: Vital Signs Date Time Temp Pulse Resp B/P (MAP) Pulse Ox O2 Delivery O2 Flow Rate FiO2 07/19/19 07:00 98.2 87 18 135/77 (96) 96 Room Air 98.2 Labs: Laboratory Tests Test 07/18/19 10:41 07/18/19 16:40 07/18/19 20:35 07/19/19 07:44 Glucose (Fingerstick) 287 mg/dL 166 mg/dL 148 mg/dL 286 mg/dL Imaging: Right foot/ankle x-ray IMPRESSION: Acute traumatic nondisplaced fracture of the fibula at and above the level of the plafond. Prior transmetatarsal amputation. No acute findings. EGD 07/15 non-erosive gastritis PE: GEN: NAD, on the phone LUNGS: CTAB HEART: RRR ABD: NABS, S/ND/NT NEURO/PSYCH: forgetful A/P: Recurrent epigastric pain - resolved again Occasional heartburn, mildly delayed gastric emptying, h/o pancreatitis s/p anayeli ACD, ESRD on HD, DM, ?dementia -- X-ray as above, nurse says awaiting ortho opinion. When/if pain recurs, plan would be for SBS. Continue PPI. Also on Reglan tabs TID per primary. Hemodynamically unstable?: No Is patient in severe pain?: No Is NPO status required?: No ASHUTOSH SHAIKH Jul 19, 2019 09:10
[2019-07-19 10:49] VITALS: BP 120/63
[2019-07-19] MEDS: HYDROcodone/APAP 5/325MG 1 TAB TABLET PO PRN ×2 (11:20→16:46)
--- NOTE | 2019-07-19 12:27 | PDOC2 ---
CONSULT Date of Consult Date of Consult DATE: 07/19/19 TIME: 12:26 Past Medical History Cardiovascular: CHF, HTN GI: Constipation Heme/Onc: Anemia NOS Renal/: Chronic renal failure Endocrine: Hyperparathyroidism Family History Family History: Hypertension Social History ALCOHOL: none Drugs: None Lives: with Family Current Medications Current Medications Current Medications Apixaban (Eliquis) 5 mg BID PO Last administered on 07/19/19 08:15; Start 07/15/19 at 21:00 Atorvastatin Calcium (Lipitor) 40 mg DAILY PO Last administered on 07/19/19at 08:14; Start 07/16/19 at 09:00 Dicyclomine HCl (Bentyl) 10 mg PRN TID PRN PO abd pain; Start 07/15/19 at 16:15 Vitamin B Complex/ Vitamin C (Swathi-Karmen) 1 tab DAILY PO Last administered on 07/19/19at 08:14; Start 07/16/19 at 09:00 Gabapentin (Neurontin) 300 mg TID PO Last administered on 07/19/19at 08:14; Start 07/15/19 at 21:00 Metoclopramide HCl (Reglan) 5 mg TIDACHC PO Last administered on 07/19/19at 11:20; Start 07/15/19 at 16:30 Montelukast Sodium (Singulair) 10 mg DAILY PO Last administered on 07/19/19at 08:14; Start 07/16/19 at 09:00 Nitroglycerin (Nitrostat) 0.4 mg PRN Q5MIN PRN SL CHEST PAIN; Start 07/15/19 at 16:15 Nystatin (Nystop) 15 anette BID TP Last administered on 07/19/19at 08:15; Start 07/15/19 at 21:00 Pantoprazole Sodium (Protonix) 40 mg DAILYAC PO Last administered on 07/19/19at 08:14; Start 07/16/19 at 07:30 Calcium Acetate (Phoslo) 667 mg TIDWMEALS PO Last administered on 07/19/19at 11:20; Start 07/15/19 at 17:00 Insulin Human Lispro (HumaLOG) 8 units TIDWMEALS SQ Last administered on 07/19/19at 11:33; Start 07/15/19 at 17:00 Sodium Chloride 1,000 ml @ 50 mls/hr Q20H IV Last administered on 07/17/19at 15:33; Start 07/15/19 at 16:15; Stop 07/19/19 at 11:15; Status DC Fentanyl Citrate (Fentanyl 2ml Vial) 25 mcg PRN Q2HR PRN IVP PAIN Last administered on 07/19/19at 09:55; Start 07/15/19 at 16:15; Stop 07/19/19 at 11:15; Status DC Insulin Human Lispro (HumaLOG) 0-5 UNITS TIDWMEALS SQ Last administered on 07/19/19at 11:44; Start 07/15/19 at 17:00 Dextrose (Dextrose 50%-Water Syringe) 12.5 gm PRN Q15MIN PRN IV SEE COMMENTS; Start 07/15/19 at 16:15 Ondansetron HCl (Zofran) 4 mg PRN Q6HRS PRN IV NAUSEA/VOMITING; Start 07/16/19 at 07:15; Stop 07/17/19 at 07:14; Status DC Fentanyl Citrate (Fentanyl 2ml Vial) 25 mcg PRN Q5MIN PRN IV MILD PAIN 1-3; Start 07/16/19 at 07:15; Stop 07/17/19 at 07:14; Status DC Fentanyl Citrate (Fentanyl 2ml Vial) 50 mcg PRN Q5MIN PRN IV MODERATE TO SEVERE PAIN; Start 07/16/19 at 07:15; Stop 07/17/19 at 07:14; Status DC Ringer's Solution 1,000 ml @ 30 mls/hr Q24H IV ; Start 07/16/19 at 07:12; Stop 07/16/19 at 12:53; Status DC Lidocaine HCl (Xylocaine-Mpf 1% 2ml Vial) 2 ml PRN 1X PRN ID PRIOR TO IV START; Start 07/16/19 at 07:15; Stop 07/17/19 at 07:14; Status DC Info (Anti-Coagulation Monitoring By Pharmacy) 1 each PRN DAILY PRN MC SEE COMMENTS Last administered on 07/17/19at 13:56; Start 07/16/19 at 10:30 Sodium Chloride 1,000 ml @ 0 mls/hr Q0M IV ; Start 07/16/19 at 10:45; Stop 07/19/19 at 11:15; Status DC Propofol 40 ml @ As Directed STK-MED ONCE IV ; Start 07/16/19 at 10:54; Stop 07/16/19 at 10:54; Status DC Lidocaine HCl (Lidocaine Pf 2% Vial) 5 ml STK-MED ONCE .ROUTE ; Start 07/16/19 at 10:54; Stop 07/16/19 at 10:54; Status DC Ephedrine Sulfate (ePHEDrine PF IN SALINE SYRINGE) 50 mg STK-MED ONCE IV ; Start 07/16/19 at 10:54; Stop 07/16/19 at 10:55; Status DC Sodium Chloride 1,000 ml @ 1,000 mls/hr Q1H PRN IV hypotension; Start 07/17/19 at 08:26; Stop 07/17/19 at 14:25; Status DC Albumin Human 200 ml @ 200 mls/hr 1X PRN PRN IV Hypotension; Start 07/17/19 at 08:30; Stop 07/17/19 at 14:29; Status DC Midodrine (Proamatine) 5 mg 1X PRN PO DIZZINESS Last administered on 07/17/19at 12:52; Start 07/17/19 at 08:30 Info (PHARMACY MONITORING -- do not chart) 1 each PRN DAILY PRN MC SEE COMMENTS; Start 07/17/19 at 08:30 Lidocaine HCl (Xylocaine-Mpf 1% 2ml Vial) 2 ml STK-MED ONCE .ROUTE ; Start 07/17/19 at 09:43; Stop 07/17/19 at 09:43; Status DC Lidocaine HCl (Xylocaine-Mpf 1% 2ml Vial) 2 ml STK-MED ONCE .ROUTE ; Start 07/17/19 at 10:00; Stop 07/19/19 at 08:36; Status DC Acetaminophen/ Hydrocodone Bitart (Lortab 5/325) 1 tab PRN Q4HRS PRN PO PAIN Last administered on 07/19/19at 11:20; Start 07/19/19 at 11:15 Active Scripts Active Metoclopramide Hcl 5 Mg Tablet 5 Mg PO TIDACHC 30 Days Pantoprazole Sodium (Pantoprazole Sodium) 40 Mg Tablet.dr 40 Mg PO DAILYAC 30 Days Dicyclomine Hcl 10 Mg Capsule 10 Mg PO PRN TID PRN 30 Days Reported Nystatin 15 Gm Powder 15 Gm TP BID Nephro-Karmen Tablet (Folic Acid/Vitamin B Comp W-C) 0.8 Mg Tablet 1 Tab PO DAILY Calcium Acetate 667 Mg Tablet 667 Mg PO TIDWMEALS Lipitor (Atorvastatin Calcium) 40 Mg Tablet 40 Mg PO DAILY Eliquis (Apixaban) 5 Mg Tablet 5 Mg PO BID Novolin R Flexpen (Insulin Regular, Human) 100 Unit/1 Ml Insuln.pen 8 Unit SQ TIDWMEALS NITROGLYCERIN SubLingual (Nitroglycerin) 0.4 Mg Tab.subl 0.4 Mg SL PRN Q5MIN PRN Montelukast Sodium Tablet (Montelukast Sodium) 10 Mg Tablet 10 Mg PO DAILY Gabapentin 300 Mg Capsule 300 Mg PO TID Allergies Allergies: Coded Allergies: Penicillins (Verified Allergy, Intermediate, Rash, 04/19/17) clarithromycin (Verified Allergy, Intermediate, Rash, 04/19/17) levofloxacin (Verified Allergy, Intermediate, RASH TO TONGUE, 04/19/17) sulfamethoxazole (Verified Allergy, Intermediate, Rash, 04/19/17) trimethoprim (Verified Allergy, Intermediate, Rash, 04/19/17) vancomycin (Verified Allergy, Intermediate, Itching, NERVOUSNESS, FLUSHING, 04/19/17) hydromorphone (Verified Adverse Reaction, Severe, Shortness of Air, 04/19/17) Patient had respiratory code post administration Sulfa (Sulfonamide Antibiotics) (Verified Adverse Reaction, Intermediate, Anxiety, insomnia, 04/19/17) morphine (Verified Adverse Reaction, Intermediate, hallucinations, 04/19/17) Vitals VITALS Vital Signs Date Time Temp Pulse Resp B/P (MAP) Pulse Ox O2 Delivery O2 Flow Rate FiO2 07/19/19 11:20 16 Room Air 07/19/19 10:49 97.4 97 120/63 (82) 98 97.4 Labs Labs Laboratory Tests Test 07/17/19 16:44 07/17/19 20:53 07/18/19 07:45 07/18/19 10:41 Glucose (Fingerstick) 168 mg/dL (70-99) 225 mg/dL (70-99) 214 mg/dL (70-99) 287 mg/dL (70-99) Test 07/18/19 16:40 07/18/19 20:35 07/19/19 07:44 07/19/19 11:29 Glucose (Fingerstick) 166 mg/dL (70-99) 148 mg/dL (70-99) 286 mg/dL (70-99) 304 mg/dL (70-99) Laboratory Tests Test 07/18/19 16:40 07/18/19 20:35 07/19/19 07:44 07/19/19 11:29 Glucose (Fingerstick) 166 mg/dL (70-99) 148 mg/dL (70-99) 286 mg/dL (70-99) 304 mg/dL (70-99) Images Images Report reviewed, images independently reviewed. Nondisplaced lateral malleolus fracture. [facility] [address] [place] [address] IMAGING REPORT Signed PATIENT: JOSSIE JUAREZ ACCOUNT: [id number] : 1950 LOCATION: [address] [place] [address] AGE: 68 SEX: F EXAM STATUS: ADM IN ORD. PHYSICIAN: HUGH CARTER MD REASON: fall/pain PROCEDURE: ANKLE RIGHT 3V Three-view right foot and three-view right ankle HISTORY: Pain status post fall Three-view right ankle: AP lateral oblique views There is a nondisplaced fracture of the distal fibula at and above the level plafond and with overlying soft tissue swelling. The remaining visualized osseous structures appear grossly intact. The tibiotalar relationship is normal. IMPRESSION: Acute traumatic nondisplaced fracture of the fibula at and above the level of the plafond. End impression Three-view right foot: AP lateral oblique views There is been prior amputation through the distal metatarsals. The remaining visualized osseous structures appear grossly intact. IMPRESSION: Prior transmetatarsal amputation. No acute findings. See 3 views right ankle. Electronically signed by: Ariel Kamara III, MD (07/18/2019 2:15 PM) [id number] DICTATED and SIGNED BY: ARIEL KAMARA III, MD DATE: 07/18/19 1415 ARIEL JEAN MD Jul 19, 2019 12:27
--- NOTE | 2019-07-19 12:31 | PDOC ---
Renal-Progress Notes Subjective Notes Notes NO NEW COMPLAINTS History of Present Illness Hx of present illness STABLE Vitals Vitals Vital Signs Date Time Temp Pulse Resp B/P (MAP) Pulse Ox O2 Delivery O2 Flow Rate FiO2 07/19/19 11:20 16 Room Air 07/19/19 10:49 97.4 97 120/63 (82) 98 97.4 Weight Weight [ ] I.O. Intake and Output Intake and Output 07/19/19 07:00 Intake Total 1320 ml Balance 1320 ml Intake Oral 320 ml IV Total 1000 ml # Bowel Movements 2 Labs Labs Laboratory Tests Test 07/18/19 16:40 07/18/19 20:35 07/19/19 07:44 07/19/19 11:29 Glucose (Fingerstick) 166 mg/dL (70-99) 148 mg/dL (70-99) 286 mg/dL (70-99) 304 mg/dL (70-99) Review of Systems Constitutional: yes: alert, oriented Ears/Nose/Throat: Yes: no symptom reported Eyes: Yes: no symptom reported Pulmonary: Yes no symptom reported Cardiovascular: Yes no symptom reported Gastrointestional: Yes: abdominal pain Genitourinary: Yes: no symptom reported Musculoskeletal: Yes: joint pain, muscle stiffness Skin: Yes no symptom reported Psychiatric/Neurological: Yes: no symptom reported Physical Exam General Appearance: no apparent distress Skin: warm Respiratory: decreased breath sounds Heart: S1S2 Abdomen: soft, bowel sounds present Genitourinary: bladder flat Extremities: pulses present Neurology: alert Assessment Assessment IMP ESRD ANEMIA EPIGASTRIC PAIN R FIB FX DECONDITIONING DM II PLAN HD TTS JOHANN NEEDED WILL RULE OUT SARS CoV-2 SHE WILL NEED THAT TO BE NEG PRIOR TO GOING BACK TO HD UNIT WILL FOLLOW -- LAUREN MEADOWS MD Jul 19, 2019 12:31
[2019-07-19 15:00] VITALS: BP 111/61
[2019-07-19 19:00] VITALS: BP 131/67
[2019-07-19] MEDS ORDERED: INSULIN LISPRO 300 UNITS/3 ML VIAL. SQ ONE (21:30)
[2019-07-19 23:00] VITALS: BP 123/73
[2019-07-20 03:00] VITALS: BP 114/77
[2019-07-20] MEDS: PANTOPRAZOLE 40 MG TABLET.DR. PO SCH (05:43)
[2019-07-20] MEDS: HYDROcodone/APAP 5/325MG 1 TAB TABLET PO PRN ×3 (05:43→17:11)
[2019-07-20] MEDS: METOCLOPRAMIDE 5 MG TABLET. PO SCH ×4 (05:43→21:03)
[2019-07-20 07:00] VITALS: BP 135/65
[2019-07-20] MEDS ORDERED: IV NORMAL SALINE 1000ML BAG 1,000 ML IV PRN ×2 (08:00)
[2019-07-20] MEDS ORDERED: DIALYSIS PATIENT. MC PRN ×2 (08:00)
[2019-07-20] MEDS: FOLIC/VIT B COMP W-C (RENAL) TABLET. PO SCH (08:48)
[2019-07-20] MEDS: CALCIUM ACETATE 667 MG CAPSULE PO SCH ×3 (08:48→17:08)
[2019-07-20] MEDS: APIXABAN 5 MG TABLET. PO SCH ×2 (08:49→21:03)
[2019-07-20] MEDS: ATORVASTATIN CALCIUM 40 MG TABLET. PO SCH (08:49)
[2019-07-20] MEDS: MONTELUKAST SODIUM 10 MG TABLET. PO SCH (08:49)
[2019-07-20] MEDS: GABAPENTIN 300 MG CAPSULE. PO SCH ×3 (08:49→21:03)
[2019-07-20] MEDS: INSULIN LISPRO 300 UNITS/3 ML VIAL. SQ SCH ×6 (08:53→17:12)
[2019-07-20] MEDS: NYSTATIN TOPICAL POWDER 15GM BOTTLE. TP SCH ×2 (08:54→21:04)
--- NOTE | 2019-07-20 09:47 | PDOC ---
Subjective: Subjective: No abd pain, tolerating diet, stooling without issue. Wants to go home. Objective: Vital Signs: Vital Signs Date Time Temp Pulse Resp B/P (MAP) Pulse Ox O2 Delivery O2 Flow Rate FiO2 07/20/19 07:00 98.2 100 17 135/65 (88) 94 Room Air 98.2 Labs: Laboratory Tests Test 07/19/19 11:29 07/19/19 16:43 07/19/19 20:58 07/20/19 07:19 Glucose (Fingerstick) 304 mg/dL (70-99) 102 mg/dL (70-99) 273 mg/dL (70-99) 309 mg/dL (70-99) PE: GEN: NAD, up in chair, breakfast tray 100% consumed LUNGS: CTAB HEART: RRR ABD: NABS, S/ND/NT NEURO/PSYCH: A & O 3 A/P: Recurrent epigastric pain - resolved; CT and EGD unrevealing Occasional heartburn, mildly delayed gastric emptying - on PPI, also Reglan per primary H/o pancreatitis s/p anayeli - previous workup at , records requested but not received; previously discussed outpt MRCP/EUS ACD, ESRD on HD, DM Right fibula fracture -- DC per others. Hemodynamically unstable?: No Is patient in severe pain?: No Is NPO status required?: No ASHUTOSH SHAIKH Jul 20, 2019 09:47
--- NOTE | 2019-07-20 10:53 | NUR ---
HEIDE following. Discussed with RN, pt should be discharging home today after dialysis. Home Health orders needed for resumption of care. HEIDE will continue to follow. Addendum: 07/20/19 at 1624 by VALENTINO JAEGER HEIDE spoke with RN, no call yet from Dr. Cardona re discharge. HEIDE provided med rec for home [facility] Dr. Cardona gives verbal order early this evening. HEIDE to fax to [employer] tomorrow (07/21/2019). HEIDE will continue to follow.
--- NOTE | 2019-07-20 11:51 | PDOC ---
Renal-Progress Notes Subjective Notes Notes FEELING BETTER History of Present Illness Hx of present illness STABLE Vitals Vitals Vital Signs Date Time Temp Pulse Resp B/P (MAP) Pulse Ox O2 Delivery O2 Flow Rate FiO2 07/20/19 11:31 22 Room Air 07/20/19 07:00 98.2 100 135/65 (88) 94 98.2 Weight Weight [ ] I.O. Intake and Output Intake and Output 07/20/19 07:00 Intake Total 830 ml Balance 830 ml Intake Oral 830 ml # Bowel Movements 1 Labs Labs Laboratory Tests Test 07/19/19 16:43 07/19/19 20:58 07/20/19 07:19 Glucose (Fingerstick) 102 mg/dL (70-99) 273 mg/dL (70-99) 309 mg/dL (70-99) Review of Systems Constitutional: yes: alert, oriented Ears/Nose/Throat: Yes: no symptom reported Eyes: Yes: no symptom reported Pulmonary: Yes no symptom reported Cardiovascular: Yes no symptom reported Gastrointestional: Yes: abdominal pain Genitourinary: Yes: no symptom reported Musculoskeletal: Yes: joint pain, muscle stiffness Skin: Yes no symptom reported Psychiatric/Neurological: Yes: no symptom reported Physical Exam General Appearance: no apparent distress Skin: warm Respiratory: decreased breath sounds Heart: S1S2 Abdomen: soft, bowel sounds present Genitourinary: bladder flat Extremities: pulses present Neurology: alert Assessment Assessment IMP ESRD ANEMIA EPIGASTRIC PAIN R FIB FX DECONDITIONING DM II PLAN HD TODAY UF TO DW JOHANN NEEDED -- LAUREN MEADOWS MD Jul 20, 2019 11:51
[2019-07-20] MEDS: ANTI-COAG MONITOR BY PHARMACY. MC PRN (12:56)
--- NOTE | 2019-07-20 14:30 | NUR ---
Returned back from Dialysis by bed. No c/o other than being hungry. Lunch tray ordered.
[2019-07-20 15:08] VITALS: BP 117/68
--- NOTE | 2019-07-20 16:48 | PDOC ---
GENERAL General: vss and afebrile. awake and alert. stomach pain remains good. chest clear, heart regular, ongoing right ankle swelling and pain and awaiting disposition of ankle fracture. dialysis ongoing. VITAL SIGNS/I&O Vital Signs/I&O: Vital Signs Date Time Temp Pulse Resp B/P (MAP) Pulse Ox O2 Delivery O2 Flow Rate FiO2 07/20/19 15:08 98.3 82 16 117/68 (84) 99 98.3 07/20/19 11:31 Room Air I & O 07/19/19 07/19/19 07/20/19 15:00 23:00 07:00 Intake Total 350 ml 200 ml 280 ml Balance 350 ml 200 ml 280 ml ALLERGIES Allergies: Allergies Coded Allergies Type Severity Reaction Last Updated Verified Penicillins Allergy Intermediate Rash 04/19/17 Yes clarithromycin Allergy Intermediate Rash 04/19/17 Yes levofloxacin Allergy Intermediate RASH TO TONGUE 04/19/17 Yes sulfamethoxazole Allergy Intermediate Rash 04/19/17 Yes trimethoprim Allergy Intermediate Rash 04/19/17 Yes vancomycin Allergy Intermediate Itching, NERVOUSNESS, FLUSHING 04/19/17 Yes hydromorphone Adverse Reaction Severe Shortness of Air 04/19/17 Yes Sulfa (Sulfonamide Antibiotics) Adverse Reaction Intermediate Anxiety, insomnia 04/19/17 Yes morphine Adverse Reaction Intermediate hallucinations 04/19/17 Yes MEDS Medications: Current Medications Medications (Trade) Dose Ordered Sig/Samara Route PRN Reason Start Time Stop Time Status Last Admin Dose Admin Insulin Human Lispro (HumaLOG) 2 units 1X ONCE SQ 07/19/19 21:30 07/19/19 21:31 DC 07/19/19 21:35 LAB Lab: Laboratory Tests Test 07/19/19 20:58 07/20/19 07:19 07/20/19 14:35 Glucose (Fingerstick) 273 mg/dL (70-99) H 309 mg/dL (70-99) H 153 mg/dL (70-99) H Hemodynamically unstable?: No Is patient in severe pain?: No Is NPO status required?: No HUGH CARTER MD Jul 20, 2019 16:48
[2019-07-20 19:00] VITALS: BP 116/72
[2019-07-20 23:00] VITALS: BP 124/68
[2019-07-21 03:00] VITALS: BP 127/72
[2019-07-21 07:00] VITALS: BP 121/66
[2019-07-21] MEDS: INSULIN LISPRO 300 UNITS/3 ML VIAL. SQ SCH ×6 (07:47→17:16)
[2019-07-21] MEDS: PANTOPRAZOLE 40 MG TABLET.DR. PO SCH (09:00)
[2019-07-21] MEDS: ATORVASTATIN CALCIUM 40 MG TABLET. PO SCH (09:01)
[2019-07-21] MEDS: GABAPENTIN 300 MG CAPSULE. PO SCH ×3 (09:01→20:55)
[2019-07-21] MEDS: MONTELUKAST SODIUM 10 MG TABLET. PO SCH (09:01)
[2019-07-21] MEDS: CALCIUM ACETATE 667 MG CAPSULE PO SCH ×3 (09:01→17:10)
[2019-07-21] MEDS: FOLIC/VIT B COMP W-C (RENAL) TABLET. PO SCH (09:01)
[2019-07-21] MEDS: APIXABAN 5 MG TABLET. PO SCH ×2 (09:01→20:55)
[2019-07-21] MEDS: METOCLOPRAMIDE 5 MG TABLET. PO SCH ×4 (09:01→20:55)
[2019-07-21] MEDS: NYSTATIN TOPICAL POWDER 15GM BOTTLE. TP SCH ×2 (09:02→21:00)
--- NOTE | 2019-07-21 10:52 | PDOC ---
Subjective: Subjective: Doesn't know when she's going home. Eating an omelette with peppers and jalapenos. No abd pain. Objective: Vital Signs: Vital Signs Date Time Temp Pulse Resp B/P (MAP) Pulse Ox O2 Delivery O2 Flow Rate FiO2 07/21/19 07:00 98.6 116 18 121/66 (84) 97 Room Air 98.6 Labs: Laboratory Tests Test 07/20/19 14:35 07/20/19 20:44 07/21/19 07:25 Glucose (Fingerstick) 153 mg/dL 123 mg/dL 240 mg/dL Current PE: GEN: NAD, up in chair eating breakfast LUNGS: CTAB HEART: mildly tachycardic ABD: S/ND/NT NEURO/PSYCH: A & O 3 A/P: Recurrent epigastric pain - resolved ESRD on HD, DM, right fibula fracture -- Awaiting DC, stable from GI standpoint. Hemodynamically unstable?: No Is patient in severe pain?: No Is NPO status required?: No ASHUTOSH SHAIKH Jul 21, 2019 10:52
[2019-07-21 11:00] VITALS: BP_SYST 105; BP_SYST 116; BP_DIAS 43; BP_DIAS 70
--- NOTE | 2019-07-21 13:31 | PDOC ---
Renal-Progress Notes Subjective Notes Notes NO NEW COMPLAINTS History of Present Illness Hx of present illness STABLE Vitals Vitals Vital Signs Date Time Temp Pulse Resp B/P (MAP) Pulse Ox O2 Delivery O2 Flow Rate FiO2 07/21/19 11:00 97.8 82 18 105/43 (63) 93 Room Air 97.8 07/21/19 08:00 4.0 Weight Weight [ ] I.O. Intake and Output Intake and Output 07/21/19 07:00 Intake Total 780 ml Balance 780 ml Intake Oral 780 ml # Bowel Movements 1 Labs Labs Laboratory Tests Test 07/20/19 14:35 07/20/19 20:44 07/21/19 07:25 07/21/19 11:46 Glucose (Fingerstick) 153 mg/dL (70-99) 123 mg/dL (70-99) 240 mg/dL (70-99) 300 mg/dL (70-99) Review of Systems Constitutional: yes: alert, oriented Ears/Nose/Throat: Yes: no symptom reported Eyes: Yes: no symptom reported Pulmonary: Yes no symptom reported Cardiovascular: Yes no symptom reported Gastrointestional: Yes: abdominal pain Genitourinary: Yes: no symptom reported Musculoskeletal: Yes: joint pain, muscle stiffness Skin: Yes no symptom reported Psychiatric/Neurological: Yes: no symptom reported Physical Exam General Appearance: no apparent distress Skin: warm Respiratory: decreased breath sounds Heart: S1S2 Abdomen: soft, bowel sounds present Genitourinary: bladder flat Extremities: pulses present Neurology: alert Assessment Assessment IMP ESRD ANEMIA EPIGASTRIC PAIN R FIB FX DECONDITIONING DM II PLAN HD TOMORROW ORTHO EVAL AND TX JOHANN NEEDED -- LAUREN MEADOWS MD Jul 21, 2019 13:30
[2019-07-21] MEDS: ANTI-COAG MONITOR BY PHARMACY. MC PRN (13:39)
[2019-07-21 15:00] VITALS: BP 129/76
--- NOTE | 2019-07-21 15:08 | PDOC ---
GENERAL General: vss and afebrile. awake and alert. no abdominal complaints but "can't walk on r ight foot due to pain". chest clear, heart regular, abdomen benign. awaiting final disposition per ortho. VITAL SIGNS/I&O Vital Signs/I&O: Vital Signs Date Time Temp Pulse Resp B/P (MAP) Pulse Ox O2 Delivery O2 Flow Rate FiO2 07/21/19 11:00 97.8 82 18 105/43 (63) 93 Room Air 97.8 07/21/19 08:00 4.0 I & O0 07/20/19 07/20/19 07/21/19 15:00 23:00 07:00 Intake Total 300 ml 480 ml 0 ml Balance 300 ml 480 ml 0 ml ALLERGIES Allergies: Allergies Coded Allergies Type Severity Reaction Last Updated Verified Penicillins Allergy Intermediate Rash 04/19/17 Yes clarithromycin Allergy Intermediate Rash 04/19/17 Yes levofloxacin Allergy Intermediate RASH TO TONGUE 04/19/17 Yes sulfamethoxazole Allergy Intermediate Rash 04/19/17 Yes trimethoprim Allergy Intermediate Rash 04/19/17 Yes vancomycin Allergy Intermediate Itching, NERVOUSNESS, FLUSHING 04/19/17 Yes hydromorphone Adverse Reaction Severe Shortness of Air 04/19/17 Yes Sulfa (Sulfonamide Antibiotics) Adverse Reaction Intermediate Anxiety, insomnia 04/19/17 Yes morphine Adverse Reaction Intermediate hallucinations 04/19/17 Yes LAB Lab: Laboratory Tests Test 07/20/19 20:44 07/21/19 07:25 07/21/19 11:46 Glucose (Fingerstick) 123 mg/dL (70-99) H 240 mg/dL (70-99) H 300 mg/dL (70-99) H Hemodynamically unstable?: No Is patient in severe pain?: No Is NPO status required?: No HUGH CARTER MD Jul 21, 2019 15:08
--- NOTE | 2019-07-21 16:20 | NUR ---
SW following. Discussed with RN. RN and SW attempting to reach Dr. Victor to determine if pt can discharge. director Terence Last contacted Dr. Victor after RN tried multiple times. Pt needing a CAM walker boot. Dr. Victor put order, sent to [facility]. Pt will not discharge home today. Will need home health discharge when pt is discharging. SW will continue to follow.
[2019-07-21 19:00] VITALS: BP 111/68
[2019-07-21] MEDS: HYDROcodone/APAP 5/325MG 1 TAB TABLET PO PRN (20:58)
[2019-07-21 23:00] VITALS: BP 107/51
[2019-07-21] MEDS ORDERED: HYDROcodone/APAP 5/325MG 1 TAB TABLET PO ONE (23:00)
[2019-07-22 03:00] VITALS: BP 124/72
[2019-07-22 07:15] VITALS: BP 110/65
[2019-07-22] MEDS: METOCLOPRAMIDE 5 MG TABLET. PO SCH ×4 (07:16→22:41)
[2019-07-22] MEDS: PANTOPRAZOLE 40 MG TABLET.DR. PO SCH (07:16)
[2019-07-22] MEDS: CALCIUM ACETATE 667 MG CAPSULE PO SCH ×3 (08:15→17:00)
--- NOTE | 2019-07-22 08:15 | NUR ---
Pt to dialysis by bed.
[2019-07-22] MEDS: INSULIN LISPRO 300 UNITS/3 ML VIAL. SQ SCH ×6 (08:22→17:05)
[2019-07-22] MEDS ORDERED: IV NORMAL SALINE 1000ML BAG 1,000 ML IV PRN ×2 (08:34)
[2019-07-22] MEDS ORDERED: diphenhydrAMINE 50 MG/ML VIAL IV PRN ×2 (08:45)
[2019-07-22] MEDS ORDERED: DIALYSIS PATIENT. MC PRN (08:45)
--- NOTE | 2019-07-22 08:53 | PDOC ---
GENERAL General: vss and afebrile. awake and alert and getting ready for dialysis. ongoing right ankle pain and awaiting boot. exam stable. sugars variable. home when can walk with boot. VITAL SIGNS/I&O Vital Signs/I&O: Vital Signs Date Time Temp Pulse Resp B/P (MAP) Pulse Ox O2 Delivery O2 Flow Rate FiO2 07/22/19 07:15 98.0 97 18 110/65 (80) 94 Room Air 98.0 07/21/19 08:00 4.0 I & O 07/21/19 07/21/19 07/22/19 15:00 23:00 07:00 Intake Total 240 ml 360 ml Balance 240 ml 360 ml ALLERGIES Allergies: Allergies Coded Allergies Type Severity Reaction Last Updated Verified Penicillins Allergy Intermediate Rash 04/19/17 Yes clarithromycin Allergy Intermediate Rash 04/19/17 Yes levofloxacin Allergy Intermediate RASH TO TONGUE 04/19/17 Yes sulfamethoxazole Allergy Intermediate Rash 04/19/17 Yes trimethoprim Allergy Intermediate Rash 04/19/17 Yes vancomycin Allergy Intermediate Itching, NERVOUSNESS, FLUSHING 04/19/17 Yes hydromorphone Adverse Reaction Severe Shortness of Air 04/19/17 Yes Sulfa (Sulfonamide Antibiotics) Adverse Reaction Intermediate Anxiety, insomnia 04/19/17 Yes morphine Adverse Reaction Intermediate hallucinations 04/19/17 Yes MEDS Medications: Current Medications Medications (Trade) Dose Ordered Sig/Samara Route PRN Reason Start Time Stop Time Status Last Admin Dose Admin Acetaminophen/ Hydrocodone Bitart (Lortab 5/325) 1 tab 1X ONCE PO 07/21/19 23:00 07/21/19 23:01 DC 07/21/19 22:56 LAB Lab: Laboratory Tests Test 07/21/19 11:46 07/21/19 17:09 07/21/19 20:39 07/22/19 07:20 Glucose (Fingerstick) 300 mg/dL (70-99) H 189 mg/dL (70-99) H 110 mg/dL (70-99) H 258 mg/dL (70-99) H Hemodynamically unstable?: No Is patient in severe pain?: No Is NPO status required?: No HUGH CARTER MD Jul 22, 2019 08:53
[2019-07-22] MEDS: GABAPENTIN 300 MG CAPSULE. PO SCH ×3 (09:00→22:41)
[2019-07-22] MEDS: HYDROcodone/APAP 5/325MG 1 TAB TABLET PO PRN ×2 (09:50→15:33)
--- NOTE | 2019-07-22 09:51 | PDOC ---
Subjective: Subjective: No GI complaints - eating and stooling. Objective: Objective: No GI concerns per nurse - to get boot today, ?DC soon Vital Signs: Vital Signs Date Time Temp Pulse Resp B/P (MAP) Pulse Ox O2 Delivery O2 Flow Rate FiO2 07/22/19 07:15 98.0 97 18 110/65 (80) 94 Room Air 98.0 07/21/19 08:00 4.0 Labs: Laboratory Tests Test 07/21/19 11:46 07/21/19 17:09 07/21/19 20:39 07/22/19 07:20 Glucose (Fingerstick) 300 mg/dL 189 mg/dL 110 mg/dL 258 mg/dL PE: GEN: dialyzing LUNGS: CTAB HEART: borderline tachycardic ABD: S/ND/NT NEURO/PSYCH: A & O 3 A/P: Recurrent epigastric pain - resolved Right fibula fracture - awaiting boot -- Awaiting DC, stable from GI standpoint. Hemodynamically unstable?: No Is patient in severe pain?: No Is NPO status required?: No ASHUTOSH SHAIKH Jul 22, 2019 09:51
[2019-07-22 10:03] LABS: CALCIUM 8.3 mg/dL (8.5-10.1); CREATININE 4.1 mg/dL (0.6-1.0); GFR 10.9; POTASSIUM 3.6 mmol/L (3.5-5.1)
--- NOTE | 2019-07-22 10:30 | NUR ---
HEIDE following. Discussed with RN, pt getting CAM boot today. Awaiting boot, and pt walking before can discharge. SW will need home health orders. HEIDE will continue to follow. Addendum: 07/22/19 at 1516 by VALENTINO JAEGER Pt not able to maintain weight bearing status with the CAM boot. Pt needing a wheelchair. HEIDE contacted Provider Gilbert to determine what needs to be written in physician note for wheelchair. As a reason for needing a wheelchair, physician needs to write in face to face note "Pt cannot complete activities of daily living in the home with a walker, cane, or crutch." Provider Gilbert advised they may be able to get wheelchair to pt's home later tomorrow afternoon if all paperwork, script etc is completed correctly, otherwise it would likely be Friday. HEIDE contacted [facility] to determine turn around, they advised a few days to a week. HEIDE left form for physician to complete with RN. This form needs to be completed, and above note, as well as script tomorrow first thing for the wheelchair to be ordered, HEIDE cannot do anything to get the wheelchair if this is not done. HEIDE sent message to Dr. Cardona to notify of statement needed. RN notified. HEIDE will continue to follow. Addendum: 07/22/19 at 1535 by VALENTINO JAEGER Message actually sent to Dr. Victor by Terence Last regarding wheelchair note. Everything left on patients chart for physician to complete tomorrow. Home Health orders needed from Dr. Farrar
--- NOTE | 2019-07-22 12:20 | NUR ---
Pt returned from dialysis per bed. No c/o at this time. Cont. monitor.
[2019-07-22] MEDS: APIXABAN 5 MG TABLET. PO SCH ×2 (12:39→22:41)
[2019-07-22] MEDS: ATORVASTATIN CALCIUM 40 MG TABLET. PO SCH (12:39)
[2019-07-22] MEDS: MONTELUKAST SODIUM 10 MG TABLET. PO SCH (12:40)
[2019-07-22] MEDS: NYSTATIN TOPICAL POWDER 15GM BOTTLE. TP SCH ×2 (12:40→22:42)
[2019-07-22] MEDS: FOLIC/VIT B COMP W-C (RENAL) TABLET. PO SCH (12:40)
--- NOTE | 2019-07-22 12:44 | PDOC ---
Renal-Progress Notes Subjective Notes Notes NO NEW COMPLAINTS History of Present Illness Hx of present illness STABLE Vitals Vitals Vital Signs Date Time Temp Pulse Resp B/P (MAP) Pulse Ox O2 Delivery O2 Flow Rate FiO2 07/22/19 09:50 16 96 Room Air 07/22/19 07:15 98.0 97 110/65 (80) 98.0 07/21/19 08:00 4.0 Weight Weight [ ] I.O. Intake and Output Intake and Output 07/22/19 07:00 Intake Total 600 ml Balance 600 ml Intake Oral 600 ml # Voids 3 Labs Labs Laboratory Tests Test 07/21/19 17:09 07/21/19 20:39 07/22/19 07:20 07/22/19 08:45 Glucose (Fingerstick) 189 mg/dL (70-99) 110 mg/dL (70-99) 258 mg/dL (70-99) Sodium Level 135 mmol/L (136-145) Potassium Level 3.6 mmol/L (3.5-5.1) Chloride Level 96 mmol/L (98-107) Carbon Dioxide Level 28 mmol/L (21-32) Anion Gap 11 (6-14) Blood Urea Nitrogen 31 mg/dL (7-20) Creatinine 4.1 mg/dL (0.6-1.0) Estimated GFR (Cockcroft-Gault) 10.9 Glucose Level 223 mg/dL (70-99) Calcium Level 8.3 mg/dL (8.5-10.1) Test 07/22/19 12:21 Glucose (Fingerstick) 155 mg/dL (70-99) Review of Systems Constitutional: yes: alert, oriented Ears/Nose/Throat: Yes: no symptom reported Eyes: Yes: no symptom reported Pulmonary: Yes no symptom reported Cardiovascular: Yes no symptom reported Gastrointestional: Yes: abdominal pain Genitourinary: Yes: no symptom reported Musculoskeletal: Yes: joint pain, muscle stiffness Skin: Yes no symptom reported Psychiatric/Neurological: Yes: no symptom reported Physical Exam General Appearance: no apparent distress Skin: warm Respiratory: decreased breath sounds Heart: S1S2 Abdomen: soft, bowel sounds present Genitourinary: bladder flat Extremities: pulses present Neurology: alert Assessment Assessment IMP ESRD ANEMIA EPIGASTRIC PAIN R FIB FX DECONDITIONING DM II PLAN HD TODAY UF TO DW ORTHO EVAL AND TX JOHANN NEEDED -- MEADOWS,LAUREN S MD Jul 22, 2019 12:44
--- NOTE | 2019-07-22 13:00 | NUR ---
[place] foam placed on right knee. Pt states hit knee on table and started bleeding. Looked like scab picked off. Also noted left edwrads ulcers due to edema and placed Exuderm dressing. Encourage pt to keep legs elevated while at rest. Verbalized understanding.
--- NOTE | 2019-07-22 13:57 | NUR ---
Pt is unable to maintain 50% weight
[2019-07-22 15:30] VITALS: BP 113/54
[2019-07-22 19:00] VITALS: BP 153/60
[2019-07-22 23:00] VITALS: BP 140/67
[2019-07-23 03:00] VITALS: BP 144/72
[2019-07-23] MEDS: HYDROcodone/APAP 5/325MG 1 TAB TABLET PO PRN ×2 (04:30→08:03)
[2019-07-23 07:15] VITALS: BP 109/60
[2019-07-23] MEDS: PANTOPRAZOLE 40 MG TABLET.DR. PO SCH (07:22)
[2019-07-23] MEDS: METOCLOPRAMIDE 5 MG TABLET. PO SCH ×2 (07:22→11:44)
[2019-07-23] MEDS: APIXABAN 5 MG TABLET. PO SCH (08:02)
[2019-07-23] MEDS: CALCIUM ACETATE 667 MG CAPSULE PO SCH ×2 (08:02→11:44)
[2019-07-23] MEDS: FOLIC/VIT B COMP W-C (RENAL) TABLET. PO SCH (08:02)
[2019-07-23] MEDS: GABAPENTIN 300 MG CAPSULE. PO SCH ×2 (08:02→15:16)
[2019-07-23] MEDS: ATORVASTATIN CALCIUM 40 MG TABLET. PO SCH (08:03)
[2019-07-23] MEDS: NYSTATIN TOPICAL POWDER 15GM BOTTLE. TP SCH (08:03)
[2019-07-23] MEDS: MONTELUKAST SODIUM 10 MG TABLET. PO SCH (08:03)
[2019-07-23] MEDS: INSULIN LISPRO 300 UNITS/3 ML VIAL. SQ SCH ×4 (08:13→11:51)
--- NOTE | 2019-07-23 08:19 | SNU/HH DC ---
DISCHARGE WITH HOME HEALTH DISCHARGE INFORMATION: Discharge Date: July 23, 2019 Condition on Discharge: Stable CODE STATUS: Code Status: Full HOME HEALTH: Face to Face: I certify this patient is under my care and that I, or a nurse practitioner or physician's anesthesiology physician assistant working with me, had a face to face encounter that meets the physician face to face encounter requirements with this patient on 07/23/19. Medical Complications: Dementia, DM RN For Eval/Treatment: Yes Physical Therapy For: Evalulation/Treatment Occupational Therapy For: Evaluation/Treatment Pt Meets Homebound Status: Poor coordination w/ amb., Unsteady balance w/ amb,, Poor cognition POST DISCHARGE ORDERS: Activity Instructions for Disc: Activity as tolerated Weight Bearing Status after Di: As tolerated DIET AFTER DISCHARGE: ADA Wound/Incision Care: Other, see below CHECKS AFTER DISCHARGE: Checks after discharge: Check blood sugar, ac/hs TREATMENT/EQUIPMENT ORDERS: Adaptive Equipment Issued: None CERTIFICATION STATEMENT: Certification Statement: Certification Statement: Based on the above finding, I certify that this patient is confined to the home and needs intermittent group home care, physical therapy and/or speech therapy, or continues to need occupational therapy.~ This patient is under my care, and I have initiated the establishment of the plan of care.~ This patient will be followed by myself or a community physician who will periodically review the plan of care. Home Meds Active Scripts Metoclopramide Hcl (METOCLOPRAMIDE HCL) 5 Mg Tablet, 5 MG PO TIDACHC for abdomin al pain for 30 Days, #120 TAB Prov:HUGH CARTER MD 07/12/19 Pantoprazole Sodium (PANTOPRAZOLE SODIUM ) 40 Mg Tablet.dr, 40 MG PO DAILYAC for abdominal pain for 30 Days, #30 TAB.SR Prov:HUGH CARTER MD 07/12/19 Dicyclomine Hcl (DICYCLOMINE HCL) 10 Mg Capsule, 10 MG PO PRN TID PRN for abd pain for 30 Days, #60 CAP Prov:HUGH CARTER MD 07/12/19 Reported Medications Nystatin (NYSTATIN) 15 Gm Powder, 15 GM TP BID for yeast, MISC 07/05/19 Folic Acid/Vitamin B Comp W-C (NEPHRO-LINDA TABLET) 0.8 Mg Tablet, 1 TAB PO DAILY for supplement, #90 TAB 3 Refills 07/05/19 Calcium Acetate (CALCIUM ACETATE) 667 Mg Tablet, 667 MG PO TIDWMEALS for DIALYSIS PATIENTS, CAP 07/05/19 Atorvastatin Calcium (LIPITOR) 40 Mg Tablet, 40 MG PO DAILY for FOR CHOLESTEROL, #30 TAB 0 Refills 07/05/19 Apixaban (ELIQUIS) 5 Mg Tablet, 5 MG PO BID for blood thinner, TAB 07/05/19 Insulin Regular, Human (Novolin R Flexpen) 100 Unit/1 Ml Insuln.pen, 8 UNIT SQ TIDWMEALS for diabetes, EACH 07/05/19 Nitroglycerin (NITROGLYCERIN SubLingual) 0.4 Mg Tab.subl, 0.4 MG SL PRN Q5MIN PRN for CHEST PAIN, BOTTLE 07/05/19 Montelukast Sodium (MONTELUKAST SODIUM TABLET ) 10 Mg Tablet, 10 MG PO DAILY for FOR ASTHMA, TAB 0 Refills 07/05/19 Gabapentin (GABAPENTIN) 300 Mg Capsule, 300 MG PO TID for NEUROGENIC PAIN, CAP 07/05/19 HUGH CARTER MD July 23, 2019 08:19
--- NOTE | 2019-07-23 10:20 | PDOC ---
Subjective: Subjective: No GI complaints, doesn't know when she gets to leave. Objective: Vital Signs: Vital Signs Date Time Temp Pulse Resp B/P (MAP) Pulse Ox O2 Delivery O2 Flow Rate FiO2 07/23/19 08:15 Room Air 07/23/19 07:15 97.3 109 16 109/60 (76) 91 97.3 Labs: Laboratory Tests Test 07/22/19 12:21 07/22/19 16:41 07/22/19 19:44 07/23/19 07:47 Glucose (Fingerstick) 155 mg/dL 322 mg/dL 140 mg/dL 344 mg/dL PE: GEN: NAD LUNGS: clear HEART: RRR ABD: S/ND/NT NEURO/PSYCH: A & O 3, flat A/P: Recurrent epigastric pain - resolved Right fibula fracture -- Asymptomatic GI-franklin. Hemodynamically unstable?: No Is patient in severe pain?: No Is NPO status required?: No ASHUTOSH SHAIKH July 23, 2019 10:20
--- NOTE | 2019-07-23 10:49 | NUR ---
SW following. Discussed with RN, pt is no longer needing a wheelchair, as apparently has one at home. SW faxed clinicals and discharge paperwork to resume care with [facility]. Pt discharging home today. No further SW needs.
--- NOTE | 2019-07-23 11:28 | NUR ---
Spoke with pt's daughter, Rupal, and gave discharge instructions. Answered questions and concerns. Verbalized understanding. Discharge this afternoon. Spouse will be picking pt up.
[2019-07-23 11:40] VITALS: BP 113/68
[2019-07-23] MEDS: ANTI-COAG MONITOR BY PHARMACY. MC PRN (12:15)
--- NOTE | 2019-07-23 12:32 | PDOC ---
Renal-Progress Notes Subjective Notes Notes FEELING BETTER History of Present Illness Hx of present illness STABLE Vitals Vitals Vital Signs Date Time Temp Pulse Resp B/P (MAP) Pulse Ox O2 Delivery O2 Flow Rate FiO2 07/23/19 11:40 99.5 120 20 113/68 (83) 96 Room Air 99.5 Weight Weight [ ] I.O. Intake and Output Intake and Output 07/23/19 07:00 Intake Total 700 ml Balance 700 ml Intake Oral 700 ml # Voids 2 Labs Labs Laboratory Tests Test 07/22/19 16:41 07/22/19 19:44 07/23/19 07:47 07/23/19 11:00 Glucose (Fingerstick) 322 mg/dL (70-99) 140 mg/dL (70-99) 344 mg/dL (70-99) 330 mg/dL (70-99) Review of Systems Constitutional: yes: alert, oriented Ears/Nose/Throat: Yes: no symptom reported Eyes: Yes: no symptom reported Pulmonary: Yes no symptom reported Cardiovascular: Yes no symptom reported Gastrointestional: Yes: abdominal pain Genitourinary: Yes: no symptom reported Musculoskeletal: Yes: joint pain, muscle stiffness Skin: Yes no symptom reported Psychiatric/Neurological: Yes: no symptom reported Physical Exam General Appearance: no apparent distress Skin: warm Respiratory: decreased breath sounds Heart: S1S2 Abdomen: soft, bowel sounds present Genitourinary: bladder flat Extremities: pulses present Neurology: alert Assessment Assessment IMP ESRD ANEMIA EPIGASTRIC PAIN R FIB FX DECONDITIONING DM II PLAN HD TTS OP FOR TOMORROW ORTHO EVAL AND TX JOHANN NEEDED D/C PLANS NOTED -- LAUREN MEADOWS MD July 23, 2019 12:32
[2019-07-23 15:06] VITALS: BP 109/77
--- NOTE | 2019-07-23 16:15 | NUR ---
Discharge home escorted by w/c accompanied by spouse.
--- NOTE | 2019-07-23 20:45 | DS ---
DATE OF DISCHARGE: 07/23/2019 PRIMARY DIAGNOSIS: Fall with right fibular fracture and inability to ambulate. ADDITIONAL DIAGNOSES: Abdominal pain; diabetes; cardiomyopathy; end-stage renal disease, on dialysis; history of pulmonary embolism; mild dementia. CHIEF COMPLAINT AND HISTORY OF PRESENT ILLNESS: This 68-year-old white female admitted through the office on the day of admission. Once again complaining of abdominal pain. She also complained of right foot and ankle pain due to the fall, which she had at home in addition. SUMMARY OF STAY: The patient was admitted. GI was consulted. Prior workup was reviewed. Her abdominal pain improved relatively quickly during the stay with the Protonix, Bentyl, and Reglan, which had been added at the prior stay. It was felt she probably is not taking these regularly at home. There was a question of pancreatitis in the last admission and had been diagnosed with the same at earlier in the month of June and discharged with that diagnosis. Lipase was normal during the stay. She continued to complain about her right foot. X-ray showed a nondisplaced right distal fibular fracture. Ortho was consulted. It took a couple of days to get a boot for her to be able to safely manage this at home. It was told on the day of discharge by nursing that she was ambulating fine with the same and it was felt she could be dismissed with resumption of home health services which was done. DISPOSITION: The patient is discharged to home, ADA diet. ACTIVITY: As tolerated. Boot on at all times. DISCHARGE MEDICATIONS: Listed on the med rec and have been addressed. HUGH CARTER MD DR: ANIBAL/anyi JOB#: [id number] / [id number]
== END 2019-07-23 16:15 | disposition home health service (06) | DRG 562 ==
LOC: 4 NORTH 13:09
PROVIDERS: ADMIT Family Medicine; ATTEND Family Medicine
PROC: 0DJ08ZZ Inspection of Upper Intestinal Tract, Via Natural or Artificial Opening Endoscopic (ICD-10-PCS; principal; 2019-07-16 11:00)
PROC: 5A1D70Z Performance of Urinary Filtration, Intermittent, Less than 6 Hours Per Day (ICD-10-PCS; 2019-07-17)
PROC: 5A1D70Z Performance of Urinary Filtration, Intermittent, Less than 6 Hours Per Day (ICD-10-PCS; 2019-07-20)
PROC: 5A1D70Z Performance of Urinary Filtration, Intermittent, Less than 6 Hours Per Day (ICD-10-PCS; 2019-07-22)
DX: S82.401A Unspecified fracture of shaft of right fibula, initial encounter for closed fracture (principal); N18.6 End stage renal disease; I13.2 Hypertensive heart and chronic kidney disease with heart failure and with stage 5 chronic kidney disease, or end stage renal disease; I42.9 Cardiomyopathy, unspecified; K29.70 Gastritis, unspecified, without bleeding; E87.5 Hyperkalemia; D64.9 Anemia, unspecified; E11.22 Type 2 diabetes mellitus with diabetic chronic kidney disease; F03.90 Unspecified dementia, unspecified severity, without behavioral disturbance, psychotic disturbance, mood disturbance, and anxiety; I48.91 Unspecified atrial fibrillation; I50.9 Heart failure, unspecified; K76.0 Fatty (change of) liver, not elsewhere classified; K30 Functional dyspepsia; W19.XXXA Unspecified fall, initial encounter; Y93.89 Activity, other specified; Y92.89 Other specified places as the place of occurrence of the external cause; Y99.8 Other external cause status; Z99.2 Dependence on renal dialysis; Z89.439 Acquired absence of unspecified foot; Z86.74 Personal history of sudden cardiac arrest; Z86.711 Personal history of pulmonary embolism; Z89.421 Acquired absence of other right toe(s); Z88.5 Allergy status to narcotic agent; Z88.0 Allergy status to penicillin; Z88.2 Allergy status to sulfonamides; Z88.1 Allergy status to other antibiotic agents; Z88.8 Allergy status to other drugs, medicaments and biological substances; Z82.49 Family history of ischemic heart disease and other diseases of the circulatory system
CPT/HCPCS: 36415; 43235; 73610; 73630; 80048; 80053; 82150; 82962; 83690; 85027; J0171; J1815; J2704; J3010; J3490; J7030; J8597; G0378